=== PATIENT | male | born 1930 | race Caucasian/White ===

== ENCOUNTER 2018-11-02 17:56 | Emergency (ER) | payer MEDICARE, OTHER ==
[~2018-11-02] VITALS: Ht 180.3 cm; Wt 80.7 kg
--- OUTSIDE RECORDS SUMMARY | ~2018-11-02 | XMS | Clinical Summary ---
Demographics + + + | Address | [address] | | | [place] [address] | + + + | Home Phone | | + + + | Preferred Language | Unknown | + + + | Marital Status | | + + + | Taoist Affiliation | Unknown | + + + | Race | Unknown | + + + | Ethnic Group | Unknown | + + + Author + + + | Author | [facility] | + + + | Organization | [facility] | + + + | Address | Unknown | + + + | Phone | Unavailable | + + + Support + + +---------+ + | Name | Relationship | Address | Phone | + + +---------+ + | Suzanna Hirsch | ECON | Unknown | | + + +---------+ + Care Team Providers + +------+ + | Care Supervisor Lending Activities Name | Role | Phone | + +------+ + | Nate Blackwell MD | PP | | + +------+ + Allergies + + + + + + | Active Allergy | Reactions | Severity | Noted | Comments | | | | | Date | | + + + + + + | Penicillins | Hives | High | 01/10/20 | | | | | | 14 | | + + + + + + Current Medications + + +--------+---------+------+------+-------+ | Prescription | Sig. | Disp. | Refills | Star | End | Statu | | | | | | t | Date | s | | | | | | Date | | | + + +--------+---------+------+------+-------+ | aspirin 81 MG EC | Take 81 mg by mouth | | | | | Activ | | tablet | daily. | | | | | e | + + +--------+---------+------+------+-------+ | | Take 1 tablet by | | | | | Activ | | [id number]-[id number] | mouth daily. | | | | | e | | NC PO | | | | | | | + + +--------+---------+------+------+-------+ | Folic Acid-Vit | Take 1 tablet by | | | | | Activ | | B6-Vit B12 (FOLBEE | mouth daily. | | | | | e | | PO) | | | | | | | + + +--------+---------+------+------+-------+ | niacin (NIASPAN) | Take 500 mg by mouth | | | | | Activ | | 500 MG CR tablet | nightly. | | | | | e | + + +--------+---------+------+------+-------+ | pravastatin | Take 80 mg by mouth | | | | | Activ | | (PRAVACHOL) 80 MG | nightly. | | | | | e | | tablet | | | | | | | + + +--------+---------+------+------+-------+ | | Take 1 capsule by | | | | | Activ | | glucosamine-chondroi | mouth 2 (two) times | | | | | e | | tin 500-400 MG CAPS | daily. | | | | | | + + +--------+---------+------+------+-------+ | omeprazole | Take 20 mg by mouth | | | | | Activ | | (PRILOSEC) 20 MG | every morning before | | | | | e | | capsule | breakfast. | | | | | | + + +--------+---------+------+------+-------+ | | Take 1 tablet by | | | | | Activ | | DH-Ssgnrldeir-Xbxpmy | mouth daily. | | | | | e | | obalamin | | | | | | | | (SZ-KIHWIIQCST-PTRIU | | | | | | | | COBALMIN, FOLTX, | | | | | | | | TABLET) 2.5-25-2 MG | | | | | | | | TABS | | | | | | | + + +--------+---------+------+------+-------+ | Cholecalciferol | Take 2,000 Units by | | | | | Activ | | 2000 UNITS CAPS | mouth daily. | | | | | e | + + +--------+---------+------+------+-------+ | metoprolol | Take 0.5 tablets by | 45 | 3 | 06/0 | | Activ | | (TOPROL-XL) 25 MG 24 | mouth daily. | tablet | | 04/27 | | e | | hr tablet | | | | 17 | | | + + +--------+---------+------+------+-------+ | Calcium | Take 1 tablet by | | | | | Activ | | Citrate-Vitamin D | mouth daily. | | | | | e | | (CALCIUM CITRATE + | | | | | | | | D3 PO) | | | | | | | + + +--------+---------+------+------+-------+ Active Problems + + + | Problem | Noted Date | + + + | Right bundle branch block | 01/23/2015 | + + + + + | Last Assessment & Plan: New RBBB is now notedHe is | | asymptomaticHe stays [id number] echo normal LV functionReg EST | | negative for ischemia- hypertensive response to exercise notedBP | | now well controlledDiscussed about BP response to exercise, | | discussed diet, exercise, lifestyle changesExercise | | trainingContinue Metoprolol, ASA, PravastatinF/u annually or as | | needed. | |Exercise training | |Continue Metoprolol, ASA, Pravastatin | |F/u annually or as needed. | + + + + + | HTN (hypertension) | 01/09/2014 | + + + + + | Last Assessment & Plan: Hypertension. 85yo WM, | | continues to be fairly active, denies any chest discomfort, | | shortness breath, palpitations, or lightheadedness. He does | | monitor his blood pressure home, and he admits it has been | | running in the 140 | | | | 160 systolic range. His prior workup is reviewed. Labs | | reviewed. Since last seen, one year ago, no surgical procedures | | or hospitalizations. Tolerating medications. He'll continue his | | metoprolol succinate, today we had him resume her losartan at 25 | | mg daily, he'll continue to monitor his blood pressure.Last | | Cath: naLast Echo, 02/11/2015: LVEF 60-65%, mild LAE, trace AI, | | trace MR, trace TR, trace PI, est systolic PAP 26-31mmHg.Last | | Stress Test, 02/11/2015: 3:41min Franklyn, no chest pain, ECG (-) for | | ischemia, no arrhythmias.ECG, 01/23/2015: sinus rhythm, 59bpm, 1st | | degree AVB, RBBB. | + + + + + | Hyperlipidemia | 01/09/2014 | + + + + + | Overview: Last Assessment & Plan: Hyperlipidemia, at | | goal, continue current meds at current dose (pravastatin). Labs | | reviewed with patient.Labs, 11/03/2015: T Chol: 144, LDL-Chol: 80, | | HDL-Chol: 45, Tri Liver enzymes | | NML, K: 4.3, BUN/Cr: 14/1.0 (GFR 68), glu: 102 | | TSH: 1.20, HgbA1c: 6.0, WBC: 7.5, H/H: 10.6/32.7, plt: | | 312, ESR: 24, CRP: 1.0 | + + + + + | PUD (peptic ulcer disease) | 01/09/2014 | + + + + + | Overview: History of | + + Resolved Problems + + + + | Problem | Noted | Resolved | | | Date | Date | + + + + | Metabolic syndrome | 01/10/20 | | | | 14 | 7 | + + + + + + | Overview: History of | + + + +---+ + | Cardiomyopathy (HCC) | | | | | | 7 | + +---+ + + + | Last Assessment & Plan: CM, cause not entirely clear. 83yo | | WM, apparently having pneumonia this winter, slowly recovering, | | he continues to be short of breath, now quite anemic. Since last | | seen, one year ago, no surgical procedures. We discussed the | | pravastatin, and his age, and in the absence of documented | | coronary disease or stroke, he may not really benefit from this, | | however this time he does not make any changes in his medical | | therapy. His blood pressures also high, again does not want to | | make any changes in his therapy. I've asked him to monitor his | | blood pressure and follow up with his PCP.Hx CABG: noHx | | PCI/stent: Marybethacemaker/ICD: noLast cath: naLast Echo, 10/01/2011: | | LV enlargement (LVEDd 61mm), LVEF 60-65%, mild bi-Atrial | | enlargement, mild MR, mild TR.Last stress test, 09/08/2010: 6:09min | | Franklyn, no chest pain, ECG (-) for ischemia, occ PAC's. | + + Family History + + +------+ + | Medical History | Relation | Name | Comments | + + +------+ + | Heart disease | Father | | | + + +------+ + | Cancer | Mother | | | + + +------+ + + +------+ + + | Relation | Name | Status | Comments | + +------+ + + | Father | | | heart disease | | | | (Age | | | | | 86) | | + +------+ + + | Mother | | | pancreatic cancer | | | | (Age | | | | | 89) | | + +------+ + + Social History + + + +--------+------+ | Tobacco Use | Types | Packs/Day | Years | Date | | | | | Used | | + + + +--------+------+ | Former Smoker | Cigarettes | | 20 | | + + + +--------+------+ + +---+---+---+ | Smokeless Tobacco: | | | | | Never Used | | | | + +---+---+---+ + + +---------+ + | Alcohol Use | Drinks/We | oz/Week | Comments | | | ek | | | + + +---------+ + | Yes | 1 | 0.6 | maybe one beer a week | | | Standard | | | | | drinks or | | | | | | | | | | equivalen | | | | | t | | | + + +---------+ + + + + | Sex Assigned at | Date Recorded | | | | + + + | Not on file | | + + + Last Filed Vital Signs + + + + | Vital Sign | Reading | Time Taken | + + + + | Blood Pressure | 136/52 | 04/19/2018 1:38 PM PDT | + + + + | Pulse | 65 | 04/19/2018 1:38 PM PDT | + + + + | Temperature | - | - | + + + + | Respiratory Rate | 16 | 04/22/2016 12:05 PM PDT | + + + + | Oxygen Saturation | 98% | 04/19/2018 1:38 PM PDT | + + + + | Inhaled Oxygen | - | - | | Concentration | | | + + + + | Weight | 85 kg (187 lb 4.8 | 04/19/2018 1:38 PM PDT | | | oz) | | + + + + | Height | 180.3 cm (5' 11") | 04/19/2018 1:38 PM PDT | + + + + | Body Mass Index | 26.12 | 04/19/2018 1:38 PM PDT | + + + + Plan of Treatment +--------+---------+ + + + | Date | Type | Specialty | Care Team | Description | +--------+---------+ + + + | 05/02/ | Office | | Yanira Schmidt, | | | 2019 | Visit | | MD Chon Navarro | | | | | | Dr [address]ins, | | | | | | [place] [address] | | | | | | [phone] | | | | | | | | +--------+---------+ + + + + + + + + | Health Maintenance | Due Date | Last Done | Comments | + + + + + | Vaccine: | | | | | Dtap/Tdap/Td (1 - | 0 | | | | Tdap) | | | | + + + + + | Vaccine: Zoster (1 | | | | | of 2) | 1 | | | + + + + + | Vaccine: | | | | | Pneumococcal 65+ | 6 | | | | Low/Medium Risk (1 | | | | | of 2 - PCV13) | | | | + + + + + | Vaccine: Influenza | | | | | (#1) | 8 | | | + + + + + Results Not on filefrom Last 3 Months Insurance + +--------+ +------+-------+ + | Payer | Benefi | Subscriber | Type | Phone | Address | | | t Plan | ID | | | | | | / | | | | | | | Group | | | | | + +--------+ +------+-------+ + | MEDICARE | MEDICA | [id number] | | | [address] | | | RE | | | | [place] [address] | | | IP-OP | | | | | + +--------+ +------+-------+ + | [employer] | ODS | [id number] | | | | | | HEALTH | | | | | | | PLAN | | | | | + +--------+ +------+-------+ + + +--------+ +--------+ + + | Guarantor Name | Accoun | Relation to | Date | Phone | Billing Address | | | t Type | Patient | of | | | | | | | | | | + +--------+ +--------+ + + | TIANA HIRSCH | Person | Self [birth year] Home: | 1909 | | | al/Fam | | 1931 | [phone] [place] | | | [place] | | | [phone] | [phone] | + +--------+ +--------+ + +
--- OUTSIDE RECORDS SUMMARY | ~2018-11-02 | XMS | Clinical Summary ---
Demographics + + + | Address | [address] | | | [place] [address] | + + + | Home Phone | | + + + | Preferred Language | Unknown | + + + | Marital Status | | + + + | Yarsanism Affiliation | Unknown | + + + | Race | Unknown | + + + | Ethnic Group | Unknown | + + + Author + + + | Author | [facility] | + + + | Organization | [facility] | + + + | Address | Unknown | + + + | Phone | Unavailable | + + + Support + + +---------+ + | Name | Relationship | Address | Phone | + + +---------+ + | Suzanna Hirsch | ECON | Unknown | | + + +---------+ + Care Team Providers + +------+ + | Care Fabric Awning Repairer Name | Role | Phone | + [...] | | | | Activ | | MKFCHRW-SOIESTRPT-QM | mouth daily. | | | | [...] | | | | Activ | | ER-Evqskxrxsv-Xgvpcx | mouth daily. | | | | | e | | obalamin | | | | | | | | (NT-XMEDQGQQCY-UBBTW | | | | | | | [...] now notedHe is | | asymptomaticHe stays [id number] echo normal LV functionReg EST | | [...] | | | | | | [place] [address] | | | | | | [phone] | | | | | | | [...] +------+-------+ + | MEDICARE | MEDICA | [id number] | | | [address] | | | RE | | | | [place] [address] | | | IP-OP | | | | | + +--------+ +------+-------+ + | [employer] | ODS | [id number] | | | | | | HEALTH [...] | [place] | | | [phone] | [phone] | + +--------+ +--------+ + +
[~2018-11-02 17:56] MED LIST: ASPIRIN EC81 MG PO; CALCIUM 600 MG1 EACH PO; FOLBIC TABLET1 EACH PO; METOPROLOL SUCC25 MG PO; NIACIN500 M1 PO; PRAVACHOL80 MG PO; VITAMIN B12-FO1 EACH PO
== END 2018-11-02 19:10 | disposition home or self-care (01) ==
LOC: ED 17:56
DX: S01.81XA Laceration without foreign body of other part of head, initial encounter (principal); I10 Essential (primary) hypertension; Z87.891 Personal history of nicotine dependence; Z88.0 Allergy status to penicillin; Z79.899 Other long term (current) drug therapy; Z79.82 Long term (current) use of aspirin; W01.10XA Fall on same level from slipping, tripping and stumbling with subsequent striking against unspecified object, initial encounter; Z23 Encounter for immunization
CPT/HCPCS: 90471; 90715; 99282

== ENCOUNTER 2019-08-13 17:00 | Emergency (ER) | payer MEDICARE, OTHER ==
[~2019-08-13] VITALS: Ht 180.3 cm; Wt 80.7 kg
--- OUTSIDE RECORDS SUMMARY | ~2019-08-13 | XMS | Encounter Summary ---
Demographics + + + | Address | [address] | | | [place] [address] | + + + | Home Phone | | + + + | Preferred Language | Unknown | + + + | Marital Status | | + + + | Congregation Affiliation | Unknown | + + + | Race | Unknown | + + + | Ethnic Group | Unknown | + + + Author + + + | Author | [facility] | | | and [place] | + + + | Organization | [facility] | | | and [place] [...] Team Providers + +------+ + | Care Producer Arborist Manager Name | Role | Phone | + +------+ + | Nate Blackwell | PCP | | | MD | | | + +------+ + Encounter Details +--------+ + + + + | Date | Type | Department | Care Team | Description | +--------+ + + + + | 01/09/ | Orders Only | [facility] | Conversion | | | 2013 | | CONVERSION [address] | Transaction, | | | | | [address] | Provider Unknown | | | | | [place] | [phone] | | | | | [address] | | | | | | [phone] | | | +--------+ + + + [...] THAYER | | | | | | [place], [place] | | | | | | [address] | | | | | | | | +--------+---------+ + + + documented as of this encounter Visit Diagnoses Not on filedocumented in this encounter"
--- OUTSIDE RECORDS SUMMARY | ~2019-08-13 | XMS | Encounter Summary ---
Demographics + + + | Address | [address] | | | [place] [address] | + + + | Home Phone | | + + + | Preferred Language | Unknown | + + + | Marital Status | | + + + | Jew Affiliation | Unknown | + + + | Race | Unknown | + + + | Ethnic Group | Unknown | + + + Author + + + | Author | [facility] | | | and [place] | + + + | Organization | [facility] | [...] Team Providers + +------+ + | Care Stem Roller Or Crusher Operator Name | Role | Phone | + +------+ + | Nate Blackwell | PCP | | | MD | | | + +------+ + Encounter Details +--------+ + + + + | Date | Type | Department | Care Team | Description | +--------+ + + + + | 02/11/ | Orders Only | [facility] | Saul Hernandez | | | 2015 | | CARDIOLOGY JAIME Vaughan MD [address] | | | | | [address] | [address] | | | | | [address] | [place] [address] | | | | | [place], [place] | [phone] | | | | | [address] | | | | | | [phone] | | | +--------+ + + + [...] [place] | | | | | | [address] | | | | | | | [...] Performed At | + + + | [facility] CARDIOLOGY Treadmill Stress Test TEST DATE: | [...] | BP: 211 / 59 . RPP: 61720. METS: 6.20. Symptoms: bilateral leg | | [...] Vin Ortiz Conversion - 03/30/2019 9:[address] [facility] CARDIOLOGYTreadmill | | Stress Test [...] Max BP: 211 / 59 . RPP: 39239. | | METS: 6.20. Symptoms: bilateral leg fatigue The test was terminated due to patient | | bilateral leg fatigue, walked to 93 % MPHR. Stress EKG shows no significant ST T | | changes, no arrhythmias noted. IMPRESSIONS:Negative treadmill exercise stress | | test.Hypertensive response to exercise noted. Saul Hernandez MD Electronically | | signed by Sual Hernandez MD on 02/13/2015 7:14 PM | [...]
--- OUTSIDE RECORDS SUMMARY | ~2019-08-13 | XMS | Encounter Summary ---
Demographics + + + | Address | [address] | | | [place] [address] | + + + | Home Phone | | + + + | Preferred Language | Unknown | + + + | Marital Status | | + + + | Yazidi Affiliation | Unknown | + + + | Race | Unknown | + + + | Ethnic Group | Unknown | + + + Author + + + | Author | [facility] | | | and [place] | + + + | Organization | [facility] | | | and [place] [...] Team Providers + +------+ + | Care Fur Dry Cleaner Name | Role | Phone | + +------+ + | Nate Blackwell | PCP | | | MD | | | + +------+ + Encounter Details +--------+ + + + + | Date | Type | Department | Care Team | Description | +--------+ + + + + | 04/22/ | Orders Only | [facility] | Conversion | | | 2016 | | CONVERSION [address]P [address] | Transaction, | | | | | [address] | Provider Unknown | | | | | [place] | [phone] | | | | | [phone] | | | | | | [phone] | | | +--------+ + + + [...] | | | | | [place], [place] | | | | | | [address] | | | | | | | | +--------+---------+ + + + documented as of this encounter Visit Diagnoses Not on filedocumented in this encounter"
--- OUTSIDE RECORDS SUMMARY | ~2019-08-13 | XMS | Encounter Summary ---
Demographics + + + | Address | [address] | | | [place] [address] | + + + | Home Phone | | + + + | Preferred Language | Unknown | + + + | Marital Status | | + + + | Congregational Affiliation | Unknown | + + + | Race | Unknown | + + + | Ethnic Group | Unknown | + + + Author + + + | Author | [facility] | | | and Garyana | + + + | Organization | [facility] | | | and Garyana [...] Team Providers + +------+ + | Care Automatic Buffing Wheel Former Name | Role | Phone | + +------+ + | Nate Blackwell | PCP | | | MD | | | + +------+ + Reason for Visit + + + | Reason | Comments | + + + | Follow-up, Office | Annual | | Visit | | + + + Encounter Details +--------+---------+ + + + | Date | Type | Department | Care Team | Description | +--------+---------+ + + + | 06/11/ | Office | [facility] | Trina Verdugo | Right bundle branch | | 2019 | Visit | CARDIOLOGY [place] | [address] | block (Primary Dx); | | | | [address] | [address] | Essential | | | | [address] | [place] [address] | hypertension; Mixed | | | | [place], [place] | [phone] | hyperlipidemia; | | | | [address] | | Murmur, cardiac | | | | [phone] | | | +--------+---------+ + + + Social History + +-------+ +--------+ + | Tobacco Use | Types | Packs/Day | Years | Date | | | | | Used | | + +-------+ +--------+ + | Former Smoker | | 1 | 6 | 1946 - 06/11/1953 | + +-------+ +--------+ + + +---+---+--------+ | Smokeless Tobacco: | | | Quit: | | Former User | | | 1980 | + +---+---+--------+ + + | Comments: smoked a pipe as well , now quit | + + + + +---------+ + | Alcohol Use | Drinks/Week | oz/Week | Comments | + + +---------+ + | Yes | 1 Cans of beer | 1.0 | Alcoholic | | | | | Drinks/day: maybe | | | | | one beer a week | + + +---------+ + + + [...] + + documented as of this encounter Last Filed Vital Signs + + + + + | Vital Sign | Reading | Time Taken | Comments | + + + + + | Blood Pressure | 130/64 | 06/11/2019 10:13 AM | | | | | PST | | + + + + + | Pulse | 63 | 06/11/2019 10:13 AM | | | | | PST | | + + + + + | Temperature | - | - | | + + + + + | Respiratory Rate | - | - | | + + + + + | Oxygen Saturation | 96% | 06/11/2019 10:13 AM | | | | | PST | | + + + + + | Inhaled Oxygen | - | - | | | Concentration | | | | + + + + + | Weight | 79.7 kg (175 lb 11.2 | 06/11/2019 10:13 AM | | | | oz) | PST | | + + + + + | Height | 180.3 cm (5' 11") | 06/11/2019 10:13 AM | | | | | PST | | + + + + + | Body Mass Index | 24.51 | 06/11/2019 10:13 AM | | | | | PST | | + + + + + documented in this encounter Patient Instructions Patient Instructions Kartik Swati, FNP - 06/11/2019 10:30 AM PSTI have ordered you fasting labs to be done at [facility], and can be combined with any labs ordered by Dr. Villalobos man Your have a small murmur, and we can do an Echo in future if you wish to follow up as we di scussed today I made changes to medications : take metoprolol and pravastatin at bedtime at 9 pm, and castillo k to Dr. Blackwell, about Omeprazole, if think it is making your dizziness, And take aspirin with food, and with breakfast Stop Niacin, as can irritate your stomach and interferes with pravastatin See Dr. Irving In the spring as scheduled . documented in this encounter Progress Notes Trina Verdugo FNP - 06/11/2019 10:30 AM PSTFormatting of this note might be differe nt from the original. Date of visit: 06/11/2019 Primary Care Physician: Nate Blackwell MD CHIEF COMPLAINT: Chief Complaint Patient presents with Follow-up, Office Visit Annual HISTORY OF PRESENT ILLNESS: Mr. Tiana Hirsch , [place], is an 88-year old man who is here today as overdue for [facility] exam He is a patient of , who is his primary decorator lighting fixtures , and last seen by mihai mercer 04/19/2018. He was previously seen by decorator lighting fixtures , now retired. . Today, I reviewed all previous documentation available to me in electronic medical gordon rds and from external sources. He has a history of right bundle branch block, and previous EKG showed bifascicular block, Hypertension, hyperlipidemia, PUD,and chronic anemia with blood transfusions 1969's His current and previous testing and procedures are detailed below . 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 He denies any chest pain, palpitations, dyspnea, dizziness,or syncope. He also denies any s igns or symptoms of stroke or TIA, or any illness, surgery, or hospitalization since last se en. He quit smoking in 1952, and smoked about a pack a day for 6 years, and also smoked a pipe for some time, but has also quit that sometime in the 1949's. He drinks 4-5 servings of caf feine daily, predominantly weak tea and rare alcohol use, and denies use of recreational o r illicit drugs. He is and lives with his , who has some significant health issues, and also has an adult daughter who is on medical disability living with them. He continues to do some work with [employer], predominantly [employer], initiall y retired from full-time work with them 25 years ago. He brought his medications to the clinic today, and personally reviewed by me, but rep orts ongoing dizziness with omeprazole, so he only takes it sporadically. He also seems to have irregular medication dosing habits, as he will often wake up in the middle of the night and take medications at that time, so not on a regular schedule REVIEW OF SYSTEMS: Negative except for pertinent items noted in HPI. Constitutional: Denies fatigue or unexplained weight loss. Appetite is good. Weight is st able. Denies night sweats fevers or chills HENT: Reports occasional nosebleeds. Denies hearing problems. Denies dysphagia Eyes: Denies visual disturbance or double vision. Respiratory/Sleep:: Dyspnea with more extreme exertion. Denies cough and shortness of prema th with ordinary activities . Denies hemoptysis or excessive sputum production. Denies snor ing, orthopnea, PND. Cardiovascular: Denies chest pain, palpitations and leg swelling. Denies history of rheuma tic fever. Denies claudication . Gastrointestinal:Hx PUD, not since a ? GERD . Denies nausea, vomiting, abdominal nikki n and blood in stool. Genitourinary: Denies hematuria. Musculoskeletal: Denies myalgias, back pain and arthralgias. Skin: Denies color change. Denies rash or lesions Neurological:Dizziness with omeprazole Denies history of stroke/Transient ischemic attack. Denies history of seizures. Denies dizziness, syncope and numbness. Hematological/Oncology . Hx blood transfusion 1970's. Bruises easily. Denies bleeding Den ies history of cancer Endocrine: Denies diabetes or thyroid disease. Denies excessive thirst or hunger. Psychiatric/Behavioral: denies any history of depression or anxiety or other psychiatric il lness. Vaccines: Not Current on flu vaccine. Current on pneumonia vaccine?. Habits/Social : history of smoking., quit 1952, 1 ppd x 6 years . Also smoked a pipe for s everal years, but not since 1949's . EtOH use, 1 beer per week . Drinks 4-5 servings of caf feine daily. Denies recreational or illicit drug use. Exercises with active farm work , and tolerates. Lives in [place] . 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 . has significant health problems, and lives w ith adult daughter with medical disability. Outpatient Medications Prior to Visit Medication Sig Dispense Refill aspirin 81 MG EC tablet Take 81 mg by mouth daily. Calcium Citrate-Vitamin D (CALCIUM CITRATE + D3 PO) Take 1 tablet by mouth daily. SXRHJCB-NTFKCMPBC-DHAU PO Take 1 tablet by mouth daily. Cholecalciferol (VITAMIN D-3) 2000 units CAPS Take 2,000 Units by mouth daily. folic yqde-emvavdzqow-oxmnafqxharucp (FOLBIC) 2.5-25-2 MG TABS Take 1 tablet by mouth d aily. Folic Acid-Vit B6-Vit B12 (FOLBEE PO) Take 1 tablet by mouth daily. glucosamine-chondroitin 500-400 MG capsule Take 1 capsule by mouth 2 (two) times daily. metoprolol succinate (TOPROL-XL) 25 mg 24 hr tablet Take 0.5 tablets by mouth daily. (P atient taking differently: Take 12.5 mg by mouth nightly.) 45 tablet 3 niacin (NIASPAN) 500 mg CR tablet Take 500 mg by mouth nightly. omeprazole (PRILOSEC) 20 mg capsule Take 20 mg by mouth every morning before breakfast. (Patient taking differently: Take 20 mg by mouth as needed.) pravastatin (PRAVACHOL) 80 MG tablet Take 80 mg by mouth nightly. No facility-administered medications prior to visit. PHYSICAL EXAM: Wt Readings from Last 3 Encounters: 06/11/19 79.7 kg (175 lb 11.2 oz) Temp Readings from Last 3 Encounters: No data found for Temp BP Readings from Last 3 Encounters: 06/11/19 130/64 Pulse Readings from Last 3 Encounters: 06/11/19 63 Signs: 04/19/2018: WT 187 LB. BP 136/52. HR 65. GENERAL: Well developed, well nourished, in no distress. Appears approximately stated age . HEENT: Normocephalic, atraumatic. EYES: PERRL, EOM normal. MOUTH: Oral mucosae moist, dentition adequate, no lesions noted NECK: No JVD, lymphadenopathy, thyromegaly, bruits. Carotid pulses are 2+ bilaterally LUNGS/CHEST: Clear bilaterally, with no rales, rhonchi or wheezing noted, respirations unl abored HEART: Nondisplaced PMI, regular rate and rhythm, S1, S2 normal. 2/6 murmur RUSB,no rubs or gallops noted. ABDOMEN: Soft, nontender, no organomegaly, masses or bruits. Bowel sounds are normal in a ll 4 quadrants. The abdominal aortic pulsation is not palpable. EXTREMITIES: Trace pedal edema. Radial pulses 2+ bilaterally. Femoral pulses are 2+ bila terally without bruits. DP and PT pulses are 2+ bilaterally. No clubbing.minor varicositie s to ankles SKIN: Warm and dry, capillary refill is normal, no lesions. NEUROLOGIC: Awake, alert and oriented x 3. No focal motor or sensory deficits. PSYCHIATRIC: Appropriate, affect appears normal DATA: Blood tests: No results found for: WBC, RBC, HGB, HCT, PLT No results found for: NA, K, CL, CO2, ANIONGAP, GLUF, BUN, CREATININE, BCR, EGFR No results found for: CHOL, TRIG, LDL, LDL, GLUF No results found for: BNP, TSH, CRP No results found for: TOTEPI CARDIAC PROCEDURES/IMAGING Last stress test : 02/11/2015 PROCEDURE:: Franklyn protocol. The predicted exercise time was 7 m inutes.Patient's Predicted Maximum HR: 136 bpm. Patient's Predicted 85% Max HR: 116 bpm REST DATA: R: 68 bmp BP: 146 / 67 Rest EKG shows NSR RBBB. STRESS DATA: Exercise Time: 03:41 minutes, HR achieved: 127 bpm , Max BP: 211 / 59 . RPP: 2 4563. METS: 6.20. Symptoms: bilateral leg fatigue The test was terminated due to patient jocy ateral leg fatigue, walked to 93 % MPHR. Stress EKG shows no significant ST T changes, no ar rhythmias noted. IMPRESSIONS:Negative treadmill exercise stress test. Hypertensive response to exercise no rafael. VASCULAR TESTING AND PROCEDURES-none ECHO Last Echo 02/11/2015: LVEF 60-65%, mild LAE, trace AI, trace MR, trace TR, trace PI, est syst olic PAP 26-31mmHg. EKG/EVENT MONITOR EK04/19/2018: Sinus rhythm with first-degree AV block, right bundle branch block LAFB. R ate 68 bpm, CA 216 ms, QRS 146 ms, QTC 452 ms tracing personally reviewed by me. EK06/11/2019: Sinus rhythm with first-degree AV block, right bundle branch block. Rate 6 1 bpm, CA 226 ms, QRS 144 ms, QTC 430 ms, tracing personally reviewed by me, and ongoing low voltage QRS leads II, III, aVF, aVL resolution of left anterior fascicular block since prev ious EKG LABS Labs: 11/03/2015: Lipids:( Pravachol 80 mg ) Cholesterol 144, triglycerides 93, HDL 45.1, L DL 80. CMP: Sodium 133, potassium 4.3, chloride 99, glucose 102, BUN 14, creatinine 1.04, G FR 68, AST 16, ALT 12, alk phos 99, total bili 0.3, albumin 4.2. A1c 6 ( 126). Thyroid TS H 1.28 CRP 1 CBC: WBC 7.5, RBC 3.71, hemoglobin 10.6, hematocrit 32.7, platelets 312 ESR 24 ASSESSMENT & PLAN: He was here today as overdue for annual exam. He has problems as detailed below. His EKG performed in the clinic today shows stable sinus rhythm with first-degree AV block and right bundle branch block at 61 bpm, and heart rate and blood pressure well controlled on current medications. The main changes I noted to his physical exam today were that he has a soft murmur to hi s right upper sternal border, with a previous history of trace AI, and trace pedal edema, a nd reports dyspnea only with more extreme exertion. I have suggested that we could perform an echo for further evaluation, but he is not judith lly interested in this today as he feels overall he is quite stable. I reviewed his medications with him, and he has a concern that he is dizzy with his omepr azole, which I have told him to discuss with his PCP, Dr. Blackwell. I also made suggestions that he take his medications at regular times on a daily basis, as he apparently wakes up in the night and will take some of his medications in the middle of the night, and other times at other times of the day, and this may be contributing to diz ziness with omeprazole. I made no changes to cardiac medications today, and he should continue ASA 81 mg whic h I have suggested he take with breakfast in the morning to avoid GI irritation , and not in the middle of the night, metoprolol XL 12.5 mg qhs for heart rate control and hypertension, pravastatin 80 mg qhs for hyperlipidemia, and have advised him to stop Niacin As interfere s with efficacy of Pravachol, and can increased GI irritation. I have suggested he take Pravachol and metoprolol at bedtime, and same time everyday. I have ordered an updated CMP and Lipid panel , and advised him to combine it with any blo od work ordered by his PCP , Dr. Blackwell , whom he will be seeing soon. He will follow up with Dr. Irving in November for primary cardiology visit. He is aware h e can see me sooner if needed. 1. Right bundle branch block 2. Essential hypertension 3. Mixed hyperlipidemia 4. Murmur, cardiac Orders Placed This Encounter Procedures Comprehensive Metabolic Panel Lipid Panel ECG 12 lead The following portions of the patient's history were personally reviewed by me and updated as appropriate: EKG tracings, other specialty provider and PCP notes,any Hospital admission and discharge summaries, any ER records , current and previous cardiac testing and procedure reports and d noah, medication bottles brought to visit today personally reviewed by me. Allergies, current medications.labs Family history, past medical history, past social history, past surgical history. Problem list. This encounter was dictated with voice recognition software and may contain inadvertent rec ognition errors. Rashad PALOMARES [facility] 06/11/2019 Tran montenegro in this encounter Plan of Treatment +--------+---------+ + + + | Date | Type | Specialty | Care Team | Description | +--------+---------+ + + + | 11/06/ | Office | Cardiology | Yanira Irving, | | | 2019 | Visit | | MD Chon THAYER | | | | | | [place] | | | | | | [id number] | | | | | | | | +--------+---------+ + + + + +------+--------+ + + | Name | Type | Priori | Associated Diagnoses | Order Schedule | | | | ty | | | + +------+--------+ + + | Comprehensive | Lab | Routin | Mixed | Expected: | | Metabolic Panel | | e | hyperlipidemia | 06/11/2019, Expires: | | | | | | 06/11/2020 | + +------+--------+ + + | Lipid Panel | Lab | Routin | Mixed | Expected: | | | | e | hyperlipidemia | 06/11/2019, Expires: | | | | | | 06/11/2020 | + +------+--------+ + + documented as of this encounter Procedures + +--------+ + + + | Procedure Name | Priori | Date/Time | Associated Diagnosis | Comments | | | ty | | | | + +--------+ + + + | ECG 12 LEAD | Routin | 06/11/2019 | Right bundle | Results for this | | | e | 10:27 AM | branch block | procedure are in the | | | | PST | Essential | results section. | | | | | hypertension Mixed | | | | | | hyperlipidemia | | + +--------+ + + + documented in this encounter Results ECG 12 lead (06/11/2019 10:27 AM PST) + + + + + + | Component | Value | Ref Range | Performed | Pathologist | | | | | At | Signature | + + + + + + | VENTRICULAR | 61 | BPM | [facility] | | | RATE EKG | | | | | + + + + + + | ATRIAL RATE | 61 | BPM | [facility] | | + + + + + + | P-R | 226 | ms | [facility] | | | INTERVAL | | | | | + + + + + + | QRS | 144 | ms | [facility] | | | DURATION | | | | | + + + + + + | Q-T | 428 | ms | [facility] | | | INTERVAL | | | | | + + + + + + | Q-T | 430 | ms | [facility] | | | INTERVAL | | | | | | (CORRECTED) | | | | | + + + + + + | P WAVE AXIS | 43 | degrees | [facility] | | + + + + + + | QRS AXIS | -15 | degrees | [facility] | | + + + + + + | T AXIS | 30 | degrees | [facility] | | + + + + + + | INTERPRETAT | Please refer to | | [facility] | | | ION TEXT | Providers office visit | | | | | | note for Providers | | | | | | Interpretation.Confirmed | | | | | | by [facility] [place], | | | | | | [facility] Melanie ([id number]), | | | | | | television news video editor Dima Clements | | | | | | ([id number]) on 06/11/2019 | | | | | | 11:47:51 AM | | | | + + + + + + + + | Specimen | + + | | + + + + + | Narrative | Performed At | + + + | | | + + + + +---------+ + + | Performing | Address | City/State/Zipcode | Phone Number | | Organization | | | | + +---------+ + + | [facility] | | | | + +---------+ + + documented in this encounter Visit Diagnoses + + | Diagnosis | + + | Right bundle branch block - Primary | + + | Essential hypertension Unspecified essential hypertension | + + | Mixed hyperlipidemia | + + | Murmur, cardiac Undiagnosed cardiac murmurs | + + documented in this encounter
--- OUTSIDE RECORDS SUMMARY | ~2019-08-13 | XMS | Encounter Summary ---
Demographics + + + | Address | [address] | | | [place] [address] | + + + | Home Phone | | + + + | Preferred Language | Unknown | + + + | Marital Status | | + + + | Orthodoxy Affiliation | Unknown | + + + | Race | Unknown | + + + | Ethnic Group | Unknown | + + + Author + + + | Author | [facility] | | | and Garyana | + + + | Organization | [facility] | | | and Garyana [...] Team Providers + +------+ + | Care Gate Tender Name | Role | Phone | + +------+ + | Ntae Blackwell | PCP | | | MD [...] + + | 06/11/ | Office | [facility] | Trina Verdugo | Right bundle branch | | 2019 | Visit | CARDIOLOGY [place] | [address] | block (Primary Dx); | | | | [address] | [address] | Essential | | | | [address] | [place] [address] | hypertension; Mixed | | | | [place], [place] | [phone] | hyperlipidemia; | | | | [address] | | Murmur, cardiac | | | | [phone] | | | +--------+---------+ + + + [...] you fasting labs to be done at [facility], and can be combined with any [...] is here today as overdue for [facility] exam He is a patient of , who is his primary public services assistant , and last seen by mihai mercer 04/19/2018. He was previously seen by public services assistant , now retired. . Today, I reviewed [...] He continues to do some work with [employer], predominantly [employer], initiall y retired from full-time work with [...] farm work , and tolerates. Lives in [place] . 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 . has significant health problems, and lives w ith adult daughter with medical disability. Outpatient Medications Prior to Visit Medication Sig Dispense Refill aspirin 81 MG EC tablet Take 81 mg by mouth daily. Calcium Citrate-Vitamin D (CALCIUM CITRATE + D3 PO) Take 1 tablet by mouth daily. ACWAPFC-ZFGGNLZWG-WGTP PO Take 1 tablet by mouth daily. Cholecalciferol (VITAMIN D-3) 2000 units CAPS Take 2,000 Units by mouth daily. folic qemx-uyfhvzmyku-ztxtosxfqwxoic (FOLBIC) 2.5-25-2 MG TABS Take 1 tablet [...] branch block LAFB. R ate 68 bpm, DE 216 ms, QRS 146 ms, QTC 452 ms tracing personally reviewed by me. EK06/11/2019: Sinus rhythm with first-degree AV block, right bundle branch block. Rate 6 1 bpm, DE 226 ms, QRS 144 ms, QTC 430 [...] contain inadvertent rec ognition errors. Rashad PALOMARES [facility] 06/11/2019 Tran montenegro in this [...] [place] | | | | | | [id number] | | | | | | | [...] | | | | | by [facility], | | | | | | [facility] Melanie ([id number]), | | | | | | electronic news gathering editor Dima Clements | | | | [...]
--- OUTSIDE RECORDS SUMMARY | ~2019-08-13 | XMS | Encounter Summary ---
Demographics + + + | Address | [address] | | | [place] [address] | + + + | Home Phone | | + + + | Preferred Language | Unknown | + + + | Marital Status | | + + + | Confucianism Affiliation | Unknown | + + + | Race | Unknown | + + + | Ethnic Group | Unknown | + + + Author + + + | Author | [facility] | | | and Garyana | + + + | Organization | [facility] | | | and Garyana [...] Team Providers + +------+ + | Care Form Setter Name | Role | Phone | + +------+ + | Nate Blackwell | PCP | | | MD | | | + +------+ + Encounter Details +--------+ + + + + | Date | Type | Department | Care Team | Description | +--------+ + + + + | 04/19/ | Orders Only | [facility] | Conversion | | | 2018 | | CONVERSION DEP 888 | Transaction, | | | | | [address] | Provider Unknown | | | | | [place] | [phone] | | | | | [address] | | | | | | [phone] | | | +--------+ + + + + Social History + +-------+ +--------+------+ | Tobacco Use | Types | Packs/Day | Years | Date | | | | | Used | | + +-------+ +--------+------+ | Former Smoker | | | | | + +-------+ [...] | | | | | [place] | | | | | | [id number] | | | | | | | | +--------+---------+ + + + documented as of this encounter Visit Diagnoses Not on filedocumented in this encounter"
--- OUTSIDE RECORDS SUMMARY | ~2019-08-13 | XMS | Clinical Summary ---
Demographics + + + | Address | [address] | | | [place] [address] | + + + | Home Phone | | + + + | Preferred Language | Unknown | + + + | Marital Status | | + + + | Adventist Affiliation | Unknown | + + + | Race | Unknown | + + + | Ethnic Group | Unknown | + + + Author + + + | Author | [facility] (Historical as of | | | 03-24-19) | + + + | Organization | [facility] (Historical as of | | | 03-24-19) [...] Team Providers + +------+ + | Care Physical Chemistry Professor Name | Role | Phone | + [...] | | | | Activ | | AYUHZHX-XUYELWMHC-JP | mouth daily. | | | | [...] | | | | Activ | | UP-Wsegknkzeq-Thyjoe | mouth daily. | | | | | e | | obalamin | | | | | | | | (SP-[id number] | | | | | | | [...] now notedHe is | | asymptomaticHe stays ihulfp0F echo normal LV functionReg EST | | [...] +------+-------+ + | MEDICARE | MEDICA | [id number] | | | [address] | | | RE | | | | [place] [address] | | | IP-OP | | | | | + +--------+ +------+-------+ + | [employer] | ODS | [id number] | | | | | | HEALTH [...] | von | | | [phone] | [phone] | + +--------+ +--------+ + +
--- OUTSIDE RECORDS SUMMARY | ~2019-08-13 | XMS | Encounter Summary ---
Demographics + + + | Address | [address] | | | [place] [address] | + + + | Home Phone | | + + + | Preferred Language | Unknown | + + + | Marital Status | | + + + | Worship Affiliation | Unknown | + + + | Race | Unknown | + + + | Ethnic Group | Unknown | + + + Author + + + | Author | [facility] | | | and Garyana | + + + | Organization | [facility] | | | and Garyana [...] Team Providers + +------+ + | Care Seat Cover Cutter Name | Role | Phone | + +------+ + | Nate Blackwell | PCP | | | MD | | | + +------+ + Encounter Details +--------+ + + + + | Date | Type | Department | Care Team | Description | +--------+ + + + + | 01/14/ | Orders Only | [facility] | Yanira Schmidt, | | | 2017 | | CARDIOLOGY JAIME | [address] | | | | | [address] | [place] | | | | | [place] | [address] | | | | | [address] | | | | | | [phone] | | | +--------+ + + + [...] [place] | | | | | | [address] | | | | | | | | +--------+---------+ + + + documented as of this encounter Visit Diagnoses Not on filedocumented in this encounter"
--- OUTSIDE RECORDS SUMMARY | ~2019-08-13 | XMS | Clinical Summary ---
Demographics + + + | Address | [address] | | | [place] [address] | + + + | Home Phone | | + + + | Preferred Language | Unknown | + + + | Marital Status | | + + + | Mormonism Affiliation | Unknown | + + + | Race | Unknown | + + + | Ethnic Group | Unknown | + + + Author + + + | Author | [facility] | | | and [place]ana | + + + | Organization | [facility] | | [...] Team Providers + +------+ + | Care Boat Person Name | Role | Phone | + +------+ + | Nate Blackwell | PCP | | | MD | | | + +------+ + Allergies + + + + + + | Active Allergy | Reactions | Severity | Noted | Comments | | | | | Date | | + + + + + + | Penicillins | Hives | High | 01/10/20 | | | | | | 14 | | + + + + + + Medications + + + +---------+------+------+-------+ | Medication | Sig | Dispensed | Refills | Star | End | Statu | | | | | | t | Date | s | | | | | | Date | | | + + + +---------+------+------+-------+ | Calcium | Take 1 tablet by | | 0 | 09/1 | | Activ | | Citrate-Vitamin D | mouth daily. | | | 2/20 | | e | | (CALCIUM CITRATE + | | | | 18 | | | | D3 PO) | | | | | | | + + + +---------+------+------+-------+ | aspirin 81 MG EC | Take 81 mg by mouth | | 0 | 06/0 | | Activ | | tablet | daily. | | | 4/20 | | e | | | | | | 14 | | | + + + +---------+------+------+-------+ | pravastatin | Take 80 mg by mouth | | 0 | 06/0 | | Activ | | (PRAVACHOL) 80 MG | nightly. | | | 11/25 | | e | | tablet | | | | 14 | | | + + + +---------+------+------+-------+ | omeprazole | Take 20 mg by mouth | | 0 | 04/08 | | Activ | | (PRILOSEC) 20 mg | every morning before | | | 12/25 | | e | | capsule | breakfast. | | | 16 | | | + + + +---------+------+------+-------+ | Cholecalciferol | Take 2,000 Units by | | 0 | 04/08 | | Activ | | (VITAMIN D-3) 2000 | mouth daily. | | | 12/25 | | e | | units CAPS | | | | 16 | | | + + + +---------+------+------+-------+ | folic | Take 1 tablet by | | 0 | 04/08 | | Activ | | hqxx-cejbowtggu-lugy | mouth daily. | | | 12/25 | | e | | ocobalamin (FOLBIC) | | | | 16 | | | | 2.5-25-2 MG TABS | | | | | | | + + + +---------+------+------+-------+ | metoprolol | Take 0.5 tablets by | 45 | 3 | | | Activ | | succinate | mouth daily. | tablet | | 04/27 | | e | | (TOPROL-XL) 25 mg 24 | | | | 17 | | | | hr tablet | | | | | | | + + + +---------+------+------+-------+ +---+ + | | Additional | | | informationPatient | | | taking differently: | | | 12.5 mg Oral | | | NIGHTLY, Reported on | | | 06/11/2019 11:16 AM | +---+ + Active Problems + + + | Problem | Noted Date | + + + | Murmur, cardiac | 06/11/2019 | + + + | Right bundle branch block | 01/23/2015 | + + + | HTN (hypertension) | 01/09/2014 | + + + | Hyperlipidemia | 01/09/2014 | + + + + + | Overview: | + + + + + | PUD (peptic ulcer disease) | 01/09/2014 | + + + + + | Overview: History of | + + Encounters +--------+---------+ + + + | Date | Type | Specialty | Care Team | Description | +--------+---------+ + + + | 06/11/ | Office | Cardiology | Trina Verdugo | Right bundle branch | | 2019 | Visit | | HAO Antony | block (Primary Dx); | | | | | | Essential | | | | | | hypertension; Mixed | | | | | | hyperlipidemia; | | | | | | Murmur, cardiac | +--------+---------+ + + + from Last 3 Months Family History + + +------+ + | [...] | | + +------+ + + | Father | | | | + +------+ + + | Mother | | | pancreatic cancer | | | | (Age | | | | | 89) | | + +------+ + + | Mother | | | | + +------+ + + Social History + +-------+ +--------+ [...] recent travel history available. | + + Last Filed Vital Signs + [...] | Respiratory Rate | 16 | 04/22/2016 12:06 PM | | | | | PDT | | + + + + + [...] | | + + + + + Plan of Treatment +--------+---------+ + + + | Date | Type | Specialty | Care Team | Description | +--------+---------+ + + + | 11/06/ Office | Cardiology | Yanira Schmidt, | | | 2019 | Visit | | MD Chon THAYER | | | | | | [place], [place] | | | | | | [address] | | | | | | | | +--------+---------+ + + + + + + + + | Health Maintenance | Due Date | Last Done | Comments | + + + + + | Vaccine: | | | | | Pneumococcal 65+ (1 | 6 | | | | of 2 - PCV13) | | | | + + + + + | Vaccine: Zoster (2 | | 05/11/2006 | | | of 3) | 6 | | | + + + + + | Adult Annual | | | | | Wellness Visit | 9 | | | + + + + + | Vaccine: | | 11/02/2018, 09/08/2016 | | | Dtap/Tdap/Td (3 - | 9 | | | | Td) | | | | + + + + + | Vaccine: Influenza | Completed | 05/26/2019, 05/15/2018, | | | | | 05/17/2017, Additional history | | | | | exists | | + + + + + Procedures + +--------+ + + + | [...] | | + +--------+ + + + from Last 3 Months Results ECG 12 lead (06/11/2019 10:27 AM [...] | | | | | by [facility] Read Only, | | | | | | [facility] ([id number]), | | | | | | health editor Dima Clements | | | | [...] | | | + +---------+ + + from Last 3 Months Insurance + +--------+ +--------+ + +--------+ | Payer | Benefi | Subscriber | Effect | Phone | Address | Type | | | t Plan | ID | tomi | | | | | | / | | Dates | | | | | | Group | | | | | | + +--------+ +--------+ + +--------+ | MEDICARE | MEDICA | [id number] | 11/06/18 | [phone] | | Medica | | | RE | | 96-Pre | 5 | | re | | | PART A | | sent | | | | | | AND B | | | | | | + +--------+ +--------+ + +--------+ | MEDICARE | MEDICA | [id number] | 11/06/18 | [phone] | | Medica | | | RE | | 96-Pre | 5 | | re | | | PART A | | sent | | | | | | AND B | | | | | | + +--------+ +--------+ + +--------+ | MODA | MODA | [id number] | 10/07/19 | [phone] | [address] | Indemn | | | HEALTH | | 08-Pre | 9 | [phone] | ity | | | MDCR | | sent | | [place], | | | | [place] | | | | [place] [address] | | + +--------+ +--------+ + +--------+ | MODA | MODA | [id number] | 08/08/19 | [phone] | [address] | Indemn | | | HEALTH | | 19-Pre | 9 | [phone] | ity | | | MDCR | | sent | | [place], | | | | [place] | | | | [place] [address] | | + +--------+ +--------+ + +--------+ + +--------+ +--------+ + + | Guarantor Name | Accoun | Relation to | Date | Phone | Billing Address | | | t Type | Patient | of | | | | | | | | | | + +--------+ +--------+ + + | Tiana Hirsch | Person | Self | [birth year] | | [address] | | | al/Fam | | 1930 | [phone] | [place] [address] | | | von | | | 4 (Home) | | + +--------+ +--------+ + + | Tiana Hirsch | Person | Self | [birth year] | | [address] | | | al/Fam | | 1931 | [phone] [place] [address] | | | von | | | 4 (Home) | | + +--------+ +--------+ + + Advance Directives + + + + + | Type | Date Recorded | Patient | Explanation | | | | Certified Nuclear Medicine Technologist | | + + + + + | Power of | | | | | Supervisor Mixing | | | | + + + + + | Advance | | | | | Directive | | | | + + + + +
--- OUTSIDE RECORDS SUMMARY | ~2019-08-13 | XMS | Encounter Summary ---
Demographics + + + | Address | [address] | | | [place] [address] | + + + | Home Phone | | + + + | Preferred Language | Unknown | + + + | Marital Status | | + + + | Catholic Affiliation | Unknown | + + + | Race | Unknown | + + + | Ethnic Group | Unknown | + + + Author + + + | Author | [facility] | | | and Garyana | + + + | Organization | [facility] | | | and [...] Team Providers + +------+ + | Care Weather Forcaster Name | Role | Phone | + +------+ + | Nate Blackwell | PCP | | | MD | | | + +------+ + Encounter Details +--------+ + + + + | Date | Type | Department | Care Team | Description | +--------+ + + + + | 01/14/ | Orders Only | [facility] | Yanira Schmidt, | | | 2017 | | CARDIOLOGY JAIME | [address] | | | | | [address] | [place] | | | | | [place] | [address] | | | | | [address] | | | | | | [phone] | | | +--------+ + + + [...] SKINNER | | | | | | [address] | | | | | | | | +--------+---------+ + + + documented as of this encounter Visit Diagnoses Not on filedocumented in this encounter"
--- OUTSIDE RECORDS SUMMARY | ~2019-08-13 | XMS | Encounter Summary ---
Demographics + + + | Address | [address] | | | [place] [address] | + + + | Home Phone | | + + + | Preferred Language | Unknown | + + + | Marital Status | | + + + | Yarsani Affiliation | Unknown | + + + | Race | Unknown | + + + | Ethnic Group | Unknown | + + + Author + + + | Author | [facility] | | | and Garyana | + + + | Organization | [facility] | | | and Garyana [...] Team Providers + +------+ + | Care Canvas Products Sales Representative Name | Role | Phone | + +------+ + | Nate Blackwell | PCP | | | MD | | | + +------+ + Encounter Details +--------+ + + + + | Date | Type | Department | Care Team | Description | +--------+ + + + + | 02/11/ | Orders Only | [facility] | Saul Hernandez | | | 2015 | | CARDIOLOGY JAIME | [address] | | | | | [address] | [address] | | | | | [place] | [place] [address] | | | | | [address] | [phone] | | | | | [phone] | | | +--------+ + + + [...] [place]INNER | | | | | | [address] | | | | | | | [...] : 1930 | | | Performing Physician: aSul Hernandez | | | | | | [...] | | Walt: 0.99 m/s MV Dec [place]: 3.18 m/s2 MV DecT: 201.00 ms | [...] TR Vmax: 2.27 m/s | | | Sewer And Drain Technician: REE Authenticated by: Saul Hernandez Report | [...] cmLVIDd: 4.48 cmLVPWd: 1.11 cmLVOT Area: 4.17 [id number] Diam: 2.30 cm%FS: 43.82 | | %EF(Teich): [...] (A-L): 33.25 ml/m2LAAs A2C: | | 21.09 [id number] A-L A2C: 67.97 mlLALs A2C: 5.55 cmLAAs A4C: 19.31 iw7UMSOY A-L A4C: | | 62.09 mlLALs A4C: 5.09 cmAo Diam: 3.71 cmLA Diam: 3.60 cmLA/Ao: 0.97AV maxPG: | | 7.96 mmHgAV meanP.80 mmHgAV Vmax: 1.41 m/Magdalena Vmean: 0.89 m/Magdalena VTI: 25.39 | | cmAVA Vmax: 3.31 cm2AVA (VTI): 3.29 jm4ATUS maxP.02 mmHgLVOT meanP.15 | | mmHgLVSI Dopp: 40.97 ml/m2LVSV Dopp: 83.58 mlLVOT Vmax: 1.12 m/sLVOT Vmean: 0.65 | | m/sLVOT VTI: 20.03 cmIVRT: 89.96 msMV A Walt: 0.99 m/sMV Dec Renville: 3.18 m/s2MV | | DecT: 201.00 msMV E Walt: 0.64 m/sMV E/A Ratio: 0.64MV PHT: 58.29 msMVA By PHT: | | 3.77 pl7Cjwhle e': 0.08 m/sSeptal E/e': 7.73Lateral e': 0.07 m/sLateral E/e': | | 8.60RAP: 5 mmHgRVSP: 25.67 mmHgTR maxP.67 mmHgTR Vmax: 2.27 m/s | | Sewer And Drain Technician: DHAuthenticated by: Saul Ayoub Date/Time: 02-11-2015 18:59:58 [...] A Walt: 0.99 m/s | |MV Dec [place]: 3.18 m/s2 | |MV DecT: 201.00 ms [...] |TR Vmax: 2.27 m/s | | | |Sewer And Drain Technician: | |Authenticated by: Saul Hernandez | |Report Date/Time: 02-11-2015 18:59:58 | | | |IMPRESSION: | |1. Overall left ventricular systolic function is normal with, an EF between 65 - 70 %. | + + documented in this encounter Visit Diagnoses Not on filedocumented in this encounter"
--- OUTSIDE RECORDS SUMMARY | ~2019-08-13 | XMS | Encounter Summary ---
Demographics + + + | Address | [address] | | | [place] [address] | + + + | Home Phone | | + + + | Preferred Language | Unknown | + + + | Marital Status | | + + + | Jainism Affiliation | Unknown | + + + | Race | Unknown | + + + | Ethnic Group | Unknown | + + + Author + + + | Author | [facility] | | | and [place]ana | + + + | Organization | [facility] | | | and Garyana [...] Team Providers + +------+ + | Care Naval Engineer Name | Role | Phone | + [...] | | | | [place] | [phone] | | | | | [address] | | | | | | [phone] | | | +--------+ + + + [...] | | | | | [place], [place] | | | | | | [address] | | | | | | | | +--------+---------+ + + + documented as of this encounter Visit Diagnoses Not on filedocumented in this encounter"
--- OUTSIDE RECORDS SUMMARY | ~2019-08-13 | XMS | Encounter Summary ---
Demographics + + + | Address | [address] | | | [place] [address] | + + + | Home Phone | | + + + | Preferred Language | Unknown | + + + | Marital Status | | + + + | Shinto Affiliation | Unknown | + + + | Race | Unknown | + + + | Ethnic Group | Unknown | + + + Author + + + | Author | [facility] | | | and [place]ana | + + + | Organization | [facility] | [...] Team Providers + +------+ + | Care Gum Dipper Name | Role | Phone | + +------+ + | Nate Blackwell | PCP | | | MD | | | + +------+ + Encounter Details +--------+ + + + + | Date | Type | Department | Care Team | Description | +--------+ + + + + | 02/11/ | Orders Only | [facility] | Saul Hernandez | | | 2015 | | CARDIOLOGY JAIME Vaughan MD [address] | | | | | [address] | [address] | | | | | [address] | [place] [address] | | | | | [place], [place] | [phone] | | | | | [address] | | | | | | [phone] | | | +--------+ + + + [...] [place] | | | | | | [address] | | | | | | | [...] Performed At | + + + | [facility] CARDIOLOGY Treadmill Stress Test TEST DATE: | [...] | BP: 211 / 59 . RPP: 98600. METS: 6.20. Symptoms: bilateral leg | | [...] Conversion - 03/30/2019 9:[address] [facility] CARDIOLOGYTreadmill | | Stress Test [...] Max BP: 211 / 59 . RPP: 49988. | | METS: 6.20. Symptoms: bilateral leg [...]
--- OUTSIDE RECORDS SUMMARY | ~2019-08-13 | XMS | Encounter Summary ---
Demographics + + + | Address | [address] | | | [place] [address] | + + + | Home Phone | | + + + | Preferred Language | Unknown | + + + | Marital Status | | + + + | Uatsdin Affiliation | Unknown | + + + | Race | Unknown | + + + | Ethnic Group | Unknown | + + + Author + + + | Author | [facility] | | | and [place]ana | + + + | Organization | [facility] | | | and [place]ana | [...] Team Providers + +------+ + | Care Sales Engagement Executive Name | Role | Phone | + +------+ + | Nate Blackewll | PCP | | | MD | [...] | | | | [place] | [phone] | | | | | [address] | | | | | | [phone] | | | +--------+ + + + [...] | | | | | [place] | | | | | | [address] | | | | | | | | +--------+---------+ + + + documented as of this encounter Visit Diagnoses Not on filedocumented in this encounter"
--- OUTSIDE RECORDS SUMMARY | ~2019-08-13 | XMS | Clinical Summary ---
Demographics + + + | Address | [address] | | | [place] [address] | + + + | Home Phone [...] | Author | [facility] | | | and Garyana | + + + | Organization | [facility] | | | and [...] Team Providers + +------+ + | Care Mining Detail Draftsperson Name | Role | Phone | + [...] | 04/08 | | Activ | | piud-czixirtsja-jtbw | mouth daily. | | | 12/25 [...] | | | | | [place], [place] | | | | | | [address] | | | | | | | [...] | | | | | by [facility] Read Only, | | | | | | [facility] ([id number]), | | | | | | video [...] + +--------+ | MEDICARE | MEDICA | [id number] | 11/06/18 | [phone] | | Medica | | | RE | | 96-Pre | 5 | | re | | | PART A | | sent | | | | | | AND B | | | | | | + +--------+ +--------+ + +--------+ | MEDICARE | MEDICA | [id number] | 11/06/18 | [phone] | | Medica | | | RE | | 96-Pre | 5 | | re | | | PART A | | sent | | | | | | AND B | | | | | | + +--------+ +--------+ + +--------+ | MODA | MODA | [id number] | 10/07/19 | [phone] | [address] | Indemn | | | HEALTH | | 08-Pre | 9 | [phone] | ity | | | MDCR | | sent | | [place], | | | | [place] | | | | [place] [address] | | + +--------+ +--------+ + +--------+ | MODA | MODA | [id number] | 08/08/19 | [phone] | [address] | Indemn | | | HEALTH | | 19-Pre | 9 | [phone] | ity | | | MDCR | | sent | | [place], | | | | [place] | | | | [place] [address] | | + +--------+ +--------+ + +--------+ [...] | 1930 | [phone] | [place] [address] | | | von | | | 4 (Home) | | + +--------+ +--------+ + + | Tiana Hirsch | Person | Self | [birth year] | | [address] | | | al/Fam | | 1931 | [phone] | [place] [address] | | | von | | | 4 (Home) | | + +--------+ +--------+ + + Advance Directives + + + + + | Type | Date Recorded | Patient | Explanation | | | | Jukebox Coin Collector | | + + + + + | Power of | | | | | Fiscal Assistant | | | | + + + + + | Advance | | | | | Directive | | | | + + + + +
--- OUTSIDE RECORDS SUMMARY | ~2019-08-13 | XMS | Encounter Summary ---
Demographics + + + | Address | [address] | | | [place] [address] | + + + | Home Phone | | + + + | Preferred Language | Unknown | + + + | Marital Status | | + + + | Taoism Affiliation | Unknown | + + + | Race | Unknown | + + + | Ethnic Group | Unknown | + + + Author + + + | Author | [facility] | | | and Garyana | + + + | Organization | [facility] | | | and [...] Team Providers + +------+ + | Care Executive Vice President And Chief Operating Officer Name | Role | Phone | + [...] | | | | [place] | [phone] | | | | | [address] | | | | | | [phone] | | | +--------+ + + + [...] | | | | | [place], [place] | | | | | | [address] | | | | | | | | +--------+---------+ + + + documented as of this encounter Visit Diagnoses Not on filedocumented in this encounter"
--- OUTSIDE RECORDS SUMMARY | ~2019-08-13 | XMS | Clinical Summary ---
Demographics + + + | Address | [address] | | | [place] [address] | + + + | Home Phone | | + + + | Preferred Language | Unknown | + + + | Marital Status | | + + + | Tenriism Affiliation | Unknown | + + + | Race | Unknown | + + + | Ethnic Group | Unknown | + + + Author + + + | Author | [employer] [facility] (Historical as of | | | 03-24-19) | + + + | Organization | [facility] (Historical as of | | | 03-24-19) [...] Team Providers + +------+ + | Care Amusement Ride Inspector Name | Role | Phone | [...] | | | | Activ | | [id number] | mouth daily. | | | | [...] | | | | Activ | | TO-Qbooiqabzx-Axybcp | mouth daily. | | | | | e | | obalamin | | | | | | | | ([id number]-[id number]-ZAIBU | | | | | | | [...] now notedHe is | | asymptomaticHe stays conwai5S echo normal LV functionReg EST | | [...] +------+-------+ + | MEDICARE | MEDICA | [id number] | | | [address] | | | RE | | | | [place] [address] | | | IP-OP | | | | | + +--------+ +------+-------+ + | [employer]AN | ODS | [id number] | | | | | | HEALTH [...] | von | | | [phone] | [address] | + +--------+ +--------+ + +
--- OUTSIDE RECORDS SUMMARY | ~2019-08-13 | XMS | Encounter Summary ---
Demographics + + + | Address | [address] | | | [place] [address] | + + + | Home Phone | | + + + | Preferred Language | Unknown | + + + | Marital Status | | + + + | Anabaptism Affiliation | Unknown | + + + | Race | Unknown | + + + | Ethnic Group | Unknown | + + + Author + + + | Author | [facility] | | | and [place]ana | + + + | Organization | [facility] | | | and [...] Team Providers + +------+ + | Care Artificial Breast Fabricator Name | Role | Phone | + +------+ + | Nate Blackwell | PCP | | | MD | | | + +------+ + Encounter Details +--------+ + + + + | Date | Type | Department | Care Team | Description | +--------+ + + + + | 02/11/ | Orders Only | [facility] | Saul Hernandez | | | 2015 | | CARDIOLOGY JAIME | [address] | | | | | [address] | [address] | | | | | [place] | [place] [address] | | | | | [address] | [phone] | | | | | [phone] | | | +--------+ + + + [...] [place]NER | | | | | | [address] | | | | | | | [...] | | Walt: 0.99 m/s MV Dec Will: 3.18 m/s2 MV DecT: 201.00 ms | [...] TR Vmax: 2.27 m/s | | | Manager Float: REE Authenticated by: Saul Hernandez Report | [...] cmLVIDd: 4.48 cmLVPWd: 1.11 cmLVOT Area: 4.17 lm9GWWH Diam: 2.30 cm%FS: 43.82 | | %EF(Teich): [...] (A-L): 33.25 ml/m2LAAs A2C: | | 21.09 dy0WQGLX A-L A2C: 67.97 mlLALs A2C: 5.55 cmLAAs A4C: 19.31 eg5ITWMA A-L A4C: | | 62.09 mlLALs A4C: 5.09 cmAo Diam: 3.71 cmLA Diam: 3.60 cmLA/Ao: 0.97AV maxPG: | | 7.96 mmHgAV meanP.80 mmHgAV Vmax: 1.41 m/Magdalena Vmean: 0.89 m/Magdalena VTI: 25.39 | | cmAVA Vmax: 3.31 cm2AVA (VTI): 3.29 yj8WAWC maxP.02 mmHgLVOT meanP.15 | | mmHgLVSI Dopp: 40.97 ml/m2LVSV Dopp: 83.58 mlLVOT Vmax: 1.12 m/sLVOT Vmean: 0.65 | | m/sLVOT VTI: 20.03 cmIVRT: 89.96 msMV A Walt: 0.99 m/sMV Dec Will: 3.18 m/s2MV | | DecT: 201.00 msMV E Walt: 0.64 m/sMV E/A Ratio: 0.64MV PHT: 58.29 msMVA By PHT: | | 3.77 yt6Vneizm e': 0.08 m/sSeptal E/e': 7.73Lateral e': 0.07 m/sLateral E/e': | | 8.60RAP: 5 mmHgRVSP: 25.67 mmHgTR maxP.67 mmHgTR Vmax: 2.27 m/s | | Manager Float: DHAuthenticated by: Saul Ayoub Date/Time: 02-11-2015 18:59:58 [...] A Walt: 0.99 m/s | |MV Dec Will: 3.18 m/s2 | |MV DecT: 201.00 ms [...] |TR Vmax: 2.27 m/s | | | |Manager Float: | |Authenticated by: Saul Hernandez | |Report Date/Time: 02-11-2015 18:59:58 | | | |IMPRESSION: | |1. Overall left ventricular systolic function is normal with, an EF between 65 - 70 %. | + + documented in this encounter Visit Diagnoses Not on filedocumented in this encounter"
== END 2019-08-13 18:01 | disposition left against medical advice (07) ==
LOC: ED 17:00
DX: Z53.21 Procedure and treatment not carried out due to patient leaving prior to being seen by health care provider (principal)

== ENCOUNTER 2019-08-15 13:58 | Emergency (ER) | payer MEDICARE, OTHER ==
[~2019-08-15] VITALS: Ht 180.3 cm; Wt 80.7 kg
--- OUTSIDE RECORDS SUMMARY | ~2019-08-15 | XMS | Encounter Summary ---
Demographics + + + | Address | [address] | | | [place] [address] | + + + | Home Phone | | + + + | Preferred Language | Unknown | + + + | Marital Status | | + + + | Scientology Affiliation | Unknown | + + + | Race | Unknown | + + + | Ethnic Group | Unknown | + + + Author + + + | Author | [facility] | | | and [place] | + + + | Organization | [facility] | | | and [place] | + + + | Address | Unknown | + + + | Phone | Unavailable | + + + Support + + +---------+ + | Name | Relationship | Address | Phone | + + +---------+ + | Suzanna Hirsch | ECON | Unknown | | + + +---------+ + Care Team Providers + +------+ + | Care Daycare Worker Name | Role | Phone | + +------+ + | Nate Blackwell | PCP | | | MD | | | + +------+ + Encounter Details +--------+ + + + + | Date | Type | Department | Care Team | Description | +--------+ + + + + | 01/14/ | Orders Only | [facility] | Yanira Schmidt, | | | 2017 | | CARDIOLOGY JAIME | [address] | | | | | [address] | [place] | | | | | [place] | [address] | | | | | [address] | | | | | | [phone] | | | +--------+ + + + + Social History + +-------+ +--------+------+ | Tobacco Use | Types | Packs/Day | Years | Date | | | | | Used | | + +-------+ +--------+------+ | Never Assessed | | | | | + +-------+ +--------+------+ + + + | Sex Assigned at | Date Recorded | | | | + + + | Not on file | | + + + + + + + | Job Start Date | Occupation | Industry | + + + + | Not on file | Not on file | Not on file | + + + + + + + + | Travel History | Travel Start | Travel End | + + + + + + | No recent travel history available. | + + documented as of this encounter Plan of Treatment +--------+---------+ + + + | Date | Type | Specialty | Care Team | Description | +--------+---------+ + + + | 11/06/ | Office | Cardiology | Yanira Schmidt, | | | 2019 | Visit | | MD [address] | | | | | | [place] | | | | | | [address] | | | | | | | | +--------+---------+ + + + documented as of this encounter Visit Diagnoses Not on filedocumented in this encounter"
--- OUTSIDE RECORDS SUMMARY | ~2019-08-15 | XMS | Encounter Summary ---
Demographics + + + | Address | [address] | | | [place] [address] | + + + | Home Phone | | + + + | Preferred Language | Unknown | + + + | Marital Status | | + + + | Pentecostalism Affiliation | Unknown | + + + | Race | Unknown | + + + | Ethnic Group | Unknown | + + + Author + + + | Author | [facility] | | | and [place] | + + + | Organization | [facility] | | | and [place] | [...] Team Providers + +------+ + | Care Installation Superintendent Name | Role | Phone | + +------+ + | Nate Blackwell | PCP | | | MD | | | + +------+ + Encounter Details +--------+ + + + + | Date | Type | Department | Care Team | Description | +--------+ + + + + | 02/11/ | Orders Only | [facility] | Saul Hernandez | | | 2015 | | CARDIOLOGY JAIME | [address] | | | | | ECHO [address] | [address] | | | | | [place] | [place] [address] | | | | | [address] | [phone] | | | | | [phone] | | | +--------+ + + + [...] Cardiology | Yanira Schmidt, | | | 2020 | Visit | | MD [address] | | | | | | [place] | | | | | | [address] | | | | | | | | +--------+---------+ + + + documented as of this encounter Procedures + +--------+ + + + | Procedure Name | Priori | Date/Time | Associated Diagnosis | Comments | | | ty | | | | + +--------+ + + + | ECHO COMPLETE | Routin | 02/11/2015 | | Results for this | | | e | 4:38 PM | | procedure are in the | | | | PDT | | results section. | + +--------+ + + + documented in this encounter Results ECHO Complete (02/11/2015 4:38 PM PDT) + + | Specimen | + + | | + + + + + | Impressions | Performed At | + + + | 1. Overall left ventricular systolic function is normal with, an EF | | | between 65 - 70 %. | | + + + + + + | Narrative | Performed At | + + + | Patient Name: NIKKI HIRSCH Date of : 1930 | | | Performing Physician: Saul Hernandez | | | | | | INDICATIONS Cardiomyopathy CONCLUSIONS | | | 1. Overall left ventricular systolic function is normal with, an EF | | | between 65 - 70 %. FINDINGS -------- ECG rhythm: Sinus rhythm. | | | Study: A 2-dimensional transthoracic echocardiogram with m-mode, | | | spectral and color flow Doppler was perfomed. Study: This was a | | | technically adequate study. Left Ventricle: Overall left ventricular | | | systolic function is normal with, an EF between 65 - 70 %. Left | | | Ventricle: The left ventricle cavity size is normal. Left Ventricle: | | | Left ventricular wall thickness is normal. Left Ventricle: No | | | regional wall motion abnormalities. Left Ventricle: The diastolic | | | filling pattern indicates impaired relaxation consistent with mild | | | dysfunction (Grade I). Right Ventricle: The right ventricle is normal | | | in size. Left Atrium: The left atrium is mildly enlarged. Right | | | Atrium: The right atrium is normal in size. Aortic Valve: Aortic | | | valve is trileaflet and is mildly thickened. Aortic Valve: Trace | | | amount of aortic regurgitation. Aortic Valve: There is no evidence of | | | aortic stenosis. Mitral Valve: The mitral valve is normal. Mitral | | | Valve: There is trace mitral regurgitation. Tricuspid Valve: The | | | tricuspid valve appears structurally normal. Tricuspid Valve: Trace | | | tricuspid regurgitation present. Tricuspid Valve: There is no | | | evidence of pulmonary hypertension. Tricuspid Valve: The right | | | ventricular systolic pressure (pulmonary artery systolic pressure), as | | | measured by Doppler, is 25.68mmHg. Pulmonic Valve: The pulmonic | | | valve is normal. Pulmonic Valve: Trace pulmonic regurgitation. | | | Pericardium: There is no pericardial effusion. IVC/Hepatic Veins: The | | | IVC is normal size (1.5-2.5cm) and collapses >50% with sniff, | | | consistent with central venous pressures of 5-10mmHg. 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 Mass: No mass | | | visualized Thrombus: No clot visualized Thrombus: No vegetation | | | visualized. Septum: No ASD observed. Septum: No VSD observed. | | | MEASUREMENTS Ao asc: 3.85 cm IVC: 2.18 cm LA | | | Major: 5.19 cm EDV(Teich): 91.90 ml IVSd: 1.01 cm LVIDd: | | | 4.48 cm LVPWd: 1.11 cm LVOT Area: 4.17 cm2 LVOT Diam: | | | 2.30 cm %FS: 43.82 % EF(Teich): 75.18 % ESV(Teich): 22.80 | | | ml LVIDs: 2.52 cm SV(Teich): 69.09 ml RA Major: 4.98 cm | | | RVIDd: 3.09 cm LVEF MOD A2C: 62.91 % SV MOD A2C: 58.71 ml | | | LVEF MOD A4C: 67.83 % SV MOD A4C: 66.31 ml EF Biplane: | | | 65.45 % LVEDV MOD BP: 95.89 ml LVESV MOD BP: 33.12 ml LVEDV | | | MOD A2C: 93.32 ml LVLd A2C: 8.38 cm LVEDV MOD A4C: 97.75 ml | | | LVLd A4C: 8.55 cm LVESV MOD A2C: 34.60 ml LVLs A2C: 6.83 | | | cm LVESV MOD A4C: 31.43 ml LVLs A4C: 6.73 cm LAESV(A-L): | | | 67.83 ml LAESV Index (A-L): 33.25 ml/m2 LAAs A2C: 21.09 cm2 | | | LAESV A-L A2C: 67.97 ml LALs A2C: 5.55 cm LAAs A4C: 19.31 | | | cm2 LAESV A-L A4C: 62.09 ml LALs A4C: 5.09 cm Ao Diam: | | | 3.71 cm LA Diam: 3.60 cm LA/Ao: 0.97 AV maxP.96 mmHg | | | AV meanP.80 mmHg AV Vmax: 1.41 m/s AV Vmean: 0.89 m/s | | | AV VTI: 25.39 cm RYLEE Vmax: 3.31 cm2 RYLEE (VTI): 3.29 cm2 | | | LVOT maxP.02 mmHg LVOT meanP.15 mmHg LVSI Dopp: | | | 40.97 ml/m2 LVSV Dopp: 83.58 ml LVOT Vmax: 1.12 m/s LVOT | | | Vmean: 0.65 m/s LVOT VTI: 20.03 cm IVRT: 89.96 ms MV A | | | Walt: 0.99 m/s MV Dec Taylor: 3.18 m/s2 MV DecT: 201.00 ms | | | MV E Walt: 0.64 m/s MV E/A Ratio: 0.64 MV PHT: 58.29 ms MVA | | | By PHT: 3.77 cm2 Septal e': 0.08 m/s Septal E/e': 7.73 | | | Lateral e': 0.07 m/s Lateral E/e': 8.60 RAP: 5 mmHg RVSP: | | | 25.67 mmHg TR maxP.67 mmHg TR Vmax: 2.27 m/s | | | Log Chipper Operator: REE Authenticated by: Saul Hernandez Report | | | Date/Time: 02-11-2015 18:59:58 | | + + + + + | Procedure Note | + + | Angel, Rad Conversion - 03/29/2019 11:58 PM PDT Patient Name: Ioana HIRSCH of | | : 1930 Performing Physician: Saul | | Mary INDICATIONS----- | | ------Cardiomyopathy CONCLUSIONS 1. Overall left ventricular systolic function | | is normal with, an EF between 65 - 70 %. FINDINGS--------ECG rhythm: Sinus | | rhythm.Study: A 2-dimensional transthoracic echocardiogram with m-mode, spectral and | | color flow Doppler was perfomed.Study: This was a technically adequate study.Left | | Ventricle: Overall left ventricular systolic function is normal with, an EF between 65 - | | 70 %.Left Ventricle: The left ventricle cavity size is normal.Left Ventricle: Left | | ventricular wall thickness is normal.Left Ventricle: No regional wall motion | | abnormalities.Left Ventricle: The diastolic filling pattern indicates impaired | | relaxation consistent with mild dysfunction (Grade I).Right Ventricle: The right | | ventricle is normal in size.Left Atrium: The left atrium is mildly enlarged.Right | | Atrium: The right atrium is normal in size.Aortic Valve: Aortic valve is trileaflet and | | is mildly thickened.Aortic Valve: Trace amount of aortic regurgitation.Aortic Valve: | | There is no evidence of aortic stenosis.Mitral Valve: The mitral valve is normal.Mitral | | Valve: There is trace mitral regurgitation.Tricuspid Valve: The tricuspid valve appears | | structurally normal.Tricuspid Valve: Trace tricuspid regurgitation present.Tricuspid | | Valve: There is no evidence of pulmonary hypertension.Tricuspid Valve: The right | | ventricular systolic pressure (pulmonary artery systolic pressure), as measured by | | Doppler, is 25.68mmHg.Pulmonic Valve: The pulmonic valve is normal.Pulmonic Valve: Trace | | pulmonic regurgitation.Pericardium: There is no pericardial effusion.IVC/Hepatic | | Veins: The IVC is normal size (1.5-2.5cm) and collapses >50% with sniff, consistent with | | central venous pressures of 5-10mmHg.Aorta: The ascending aorta is dilated measuring up | | to 3.9cm.Mass: No mass visualizedThrombus: No clot visualizedThrombus: No vegetation | | visualized.Septum: No ASD observed.Septum: No VSD observed. MEASUREMENTS Ao | | asc: 3.85 cmIVC: 2.18 cmLA Major: 5.19 cmEDV(Teich): 91.90 mlIVSd: 1.01 | | cmLVIDd: 4.48 cmLVPWd: 1.11 cmLVOT Area: 4.17 [id number] Diam: 2.30 cm%FS: 43.82 | | %EF(Teich): 75.18 %ESV(Teich): 22.80 mlLVIDs: 2.52 cmSV(Teich): 69.09 mlRA | | Major: 4.98 cmRVIDd: 3.09 cmLVEF MOD A2C: 62.91 %SV MOD A2C: 58.71 mlLVEF MOD | | A4C: 67.83 %SV MOD A4C: 66.31 mlEF Biplane: 65.45 %LVEDV MOD BP: 95.89 mlLVESV | | MOD BP: 33.12 mlLVEDV MOD A2C: 93.32 mlLVLd A2C: 8.38 cmLVEDV MOD A4C: 97.75 | | mlLVLd A4C: 8.55 cmLVESV MOD A2C: 34.60 mlLVLs A2C: 6.83 cmLVESV MOD A4C: 31.43 | | mlLVLs A4C: 6.73 cmLAESV(A-L): 67.83 mlLAESV Index (A-L): 33.25 ml/m2LAAs A2C: | | 21.09 [id number] A-L A2C: 67.97 mlLALs A2C: 5.55 cmLAAs A4C: 19.31 [id number] A-L A4C: | | 62.09 mlLALs A4C: 5.09 cmAo Diam: 3.71 cmLA Diam: 3.60 cmLA/Ao: 0.97AV maxPG: | | 7.96 mmHgAV meanP.80 mmHgAV Vmax: 1.41 m/Magdalena Vmean: 0.89 m/Magdalena VTI: 25.39 | | cmAVA Vmax: 3.31 cm2AVA (VTI): 3.29 [id number] maxP.02 mmHgLVOT meanP.15 | | mmHgLVSI Dopp: 40.97 ml/m2LVSV Dopp: 83.58 mlLVOT Vmax: 1.12 m/sLVOT Vmean: 0.65 | | m/sLVOT VTI: 20.03 cmIVRT: 89.96 msMV A Walt: 0.99 m/sMV Dec Taylor: 3.18 m/s2MV | | DecT: 201.00 msMV E Walt: 0.64 m/sMV E/A Ratio: 0.64MV PHT: 58.29 msMVA By PHT: | | 3.77 [id number] e': 0.08 m/sSeptal E/e': 7.73Lateral e': 0.07 m/sLateral E/e': | | 8.60RAP: 5 mmHgRVSP: 25.67 mmHgTR maxP.67 mmHgTR Vmax: 2.27 m/s | | Log Chipper Operator: DHAuthenticated by: Saul Ayoub Date/Time: 02-11-2015 18:59:58 | | IMPRESSION: 1. Overall left ventricular systolic function is normal with, an EF between | | 65 - 70 %. | |Septum: No ASD observed. | |Septum: No VSD observed. | | | |MEASUREMENTS | | | |Ao asc: 3.85 cm | |IVC: 2.18 cm | |LA Major: 5.19 cm | |EDV(Teich): 91.90 ml | |IVSd: 1.01 cm | |LVIDd: 4.48 cm | |LVPWd: 1.11 cm | |LVOT Area: 4.17 cm2 | |LVOT Diam: 2.30 cm | |%FS: 43.82 % | |EF(Teich): 75.18 % | |ESV(Teich): 22.80 ml | |LVIDs: 2.52 cm | |SV(Teich): 69.09 ml | |RA Major: 4.98 cm | |RVIDd: 3.09 cm | |LVEF MOD A2C: 62.91 % | |SV MOD A2C: 58.71 ml | |LVEF MOD A4C: 67.83 % | |SV MOD A4C: 66.31 ml | |EF Biplane: 65.45 % | |LVEDV MOD BP: 95.89 ml | |LVESV MOD BP: 33.12 ml | |LVEDV MOD A2C: 93.32 ml | |LVLd A2C: 8.38 cm | |LVEDV MOD A4C: 97.75 ml | |LVLd A4C: 8.55 cm | |LVESV MOD A2C: 34.60 ml | |LVLs A2C: 6.83 cm | |LVESV MOD A4C: 31.43 ml | |LVLs A4C: 6.73 cm | |LAESV(A-L): 67.83 ml | |LAESV Index (A-L): 33.25 ml/m2 | |LAAs A2C: 21.09 cm2 | |LAESV A-L A2C: 67.97 ml | |LALs A2C: 5.55 cm | |LAAs A4C: 19.31 cm2 | |LAESV A-L A4C: 62.09 ml | |LALs A4C: 5.09 cm | |Ao Diam: 3.71 cm | |LA Diam: 3.60 cm | |LA/Ao: 0.97 | |AV maxP.96 mmHg | |AV meanP.80 mmHg | |AV Vmax: 1.41 m/s | |AV Vmean: 0.89 m/s | |AV VTI: 25.39 cm | |RYLEE Vmax: 3.31 cm2 | |RYLEE (VTI): 3.29 cm2 | |LVOT maxP.02 mmHg | |LVOT meanP.15 mmHg | |LVSI Dopp: 40.97 ml/m2 | |LVSV Dopp: 83.58 ml | |LVOT Vmax: 1.12 m/s | |LVOT Vmean: 0.65 m/s | |LVOT VTI: 20.03 cm | |IVRT: 89.96 ms | |MV A Walt: 0.99 m/s | |MV Dec Taylor: 3.18 m/s2 | |MV DecT: 201.00 ms | |MV E Walt: 0.64 m/s | |MV E/A Ratio: 0.64 | |MV PHT: 58.29 ms | |MVA By PHT: 3.77 cm2 | |Septal e': 0.08 m/s | |Septal E/e': 7.73 | |Lateral e': 0.07 m/s | |Lateral E/e': 8.60 | |RAP: 5 mmHg | |RVSP: 25.67 mmHg | |TR maxP.67 mmHg | |TR Vmax: 2.27 m/s | | | |Log Chipper Operator: | |Authenticated by: Saul Hernandez | |Report Date/Time: 02-11-2015 18:59:58 | | | |IMPRESSION: | |1. Overall left ventricular systolic function is normal with, an EF between 65 - 70 %. | + + documented in this encounter Visit Diagnoses Not on filedocumented in this encounter"
--- OUTSIDE RECORDS SUMMARY | ~2019-08-15 | XMS | Encounter Summary ---
Demographics + + + | Address | [address] | | | [place] [address] | + + + | Home Phone | | + + + | Preferred Language | Unknown | + + + | Marital Status | | + + + | Mu-Ism Affiliation | Unknown | + + + | Race | Unknown | + + + | Ethnic Group | Unknown | + + + Author + + + | Author | [facility] | | | and [place] | + + + | Organization | [facility] | | | and [place] [...] Team Providers + +------+ + | Care Brick Paver Name | Role | Phone | + +------+ + | Nate Blackwell | PCP | | | MD | | | + +------+ + Encounter Details +--------+ + + + + | Date | Type | Department | Care Team | Description | +--------+ + + + + | 02/11/ | Orders Only | [facility] | Saul Hernandez | | | 2015 | | CARDIOLOGY JAIME Vaughan MD [address] | | | | | [address] | [address] | | | | | [address] | [place] [address] | | | | | [place], [place] | [phone] | | | | | [address] | | | | | | [phone] | | | +--------+ + + + [...] | | | | | | [place] | | | | | | [address] | | | | | | | | +--------+---------+ + + + documented as of this encounter Procedures + +--------+ + + + | Procedure Name | Priori | Date/Time | Associated Diagnosis | Comments | | | ty | | | | + +--------+ + + + | STRESS ECG | Routin | 02/11/2015 | | Results for this | | | e | 4:07 PM | | procedure are in the | | | | PDT | | results section. | + +--------+ + + + documented in this encounter Results Stress ECG (02/11/2015 4:07 PM PDT) + + | Specimen | + + | | + + + + + | Narrative | Performed At | + + + | [facility] CARDIOLOGY Treadmill Stress Test TEST DATE: | | | 02/11/2015 INDICATION FOR TEST: 71 year old male being evaluated | | | for right bundle branch block, cardiomyopathy RISK FACTORS: | | | hypertension, hyperlipidemia, diabetes mellitus PROCEDURE: Franklyn | | | protocol. The predicted exercise time was 7 minutes.Patient's | | | Predicted Maximum HR: 136 bpm. Patient's Predicted 85% Max HR: 116 bpm | | | REST DATA: HR: 68 bmp BP: 146 / 67 Rest EKG shows NSR RBBB. | | | STRESS DATA: Exercise Time: 03:41 minutes, HR achieved: 127 bpm , Max | | | BP: 211 / 59 . RPP: 85919. METS: 6.20. Symptoms: bilateral leg | | | fatigue The test was terminated due to patient bilateral leg fatigue, | | | walked to 93 % MPHR. Stress EKG shows no significant ST T changes, | | | no arrhythmias noted. IMPRESSIONS: Negative treadmill exercise | | | stress test. Hypertensive response to exercise noted. Saul | | | MD Mary Electronically signed by Saul Hernandez MD on | | | 02/13/2015 7:14 PM | | + + + + + | Procedure Note | + + | Vin Ortiz Conversion - 03/30/2019 9:53 AM [facility] CARDIOLOGYTreadmill | | Stress Test TEST DATE: 02/11/2015 INDICATION FOR TEST: 71 year old male being evaluated | | for right bundle branch block, cardiomyopathy RISK FACTORS: hypertension, | | hyperlipidemia, diabetes mellitus PROCEDURE: Franklyn protocol. The predicted exercise time | | was 7 minutes.Patient's Predicted Maximum HR: 136 bpm. Patient's Predicted 85% Max HR: | | 116 bpm REST DATA: HR: 68 bmp BP: 146 / 67 Rest EKG shows NSR RBBB. STRESS DATA: | | Exercise Time: 03:41 minutes, HR achieved: 127 bpm , Max BP: 211 / 59 . RPP: 85204. | | METS: 6.20. Symptoms: bilateral leg fatigue The test was terminated due to patient | | bilateral leg fatigue, walked to 93 % MPHR. Stress EKG shows no significant ST T | | changes, no arrhythmias noted. IMPRESSIONS:Negative treadmill exercise stress | | test.Hypertensive response to exercise noted. Saul Hernandez MD Electronically | | signed by Saul Hernandez MD on 02/13/2015 7:14 PM | |REST DATA: HR: 68 bmp BP: 146 / 67 Rest EKG shows NSR RBBB. | | | |STRESS DATA: Exercise Time: 03:41 minutes, HR achieved: 127 bpm , Max BP: 211 / 59 . RPP: 2 4563. METS: 6.20. Symptoms: bilateral leg fatigue The test was terminated due to patient jocy ateral leg fatigue, walked to 93 % MPHR. Stress EKG shows no | |significant ST T changes, no arrhythmias noted. | | | |IMPRESSIONS: | |Negative treadmill exercise stress test. | |Hypertensive response to exercise noted. | | | |Saul Hernandez MD | | | | | + + documented in this encounter Visit Diagnoses Not on filedocumented in this encounter"
--- OUTSIDE RECORDS SUMMARY | ~2019-08-15 | XMS | Clinical Summary ---
Demographics + + + | Address | [address] | | | [place] [address] | + + + | Home Phone | | + + + | Preferred Language | Unknown | + + + | Marital Status | | + + + | Episcopal Affiliation | Unknown | + + + | Race | Unknown | + + + | Ethnic Group | Unknown | + + + Author + + + | Author | [facility] (Historical as of | | | 03-24-19) | + + + | Organization | [facility] (Historical as of | | | 03-24-19) | + + + | Address | Unknown | + + + | Phone | Unavailable | + + + Support + + +---------+ + | Name | Relationship | Address | Phone | + + +---------+ + | Suzanna Hirsch | ECON | Unknown | | + + +---------+ + Care Team Providers + +------+ + | Care Disaster Response Director Name | Role | Phone | + [...] | | | | Activ | | [id number] | mouth daily. | | | | [...] | | | | Activ | | LO-[id number] | mouth daily. | | | | | e | | obalamin | | | | | | | | (UN-[id number] | | | | | | | [...] | mouth daily. | tablet | | 9/20 | | e | | hr tablet [...] now notedHe is | | asymptomaticHe stays [id number] echo normal LV functionReg EST | | [...] his PCP.Hx CABG: noHx | | PCI/stent: noPacemaker/ICD: noLast cath: naLast Echo, 10/01/2011: | | [...] + + + + Plan of Treatment + + + + + | Health [...] | | | | | (#1) | 9 | | | + + + + + Results Not on filefrom Last 3 Months Insurance + +--------+ +------+-------+ + | Payer | Rolandi | Subscriber | Type | Phone | Address | | | t Plan | ID | | | | | | / | | | | | | | Group | | | | | + +--------+ +------+-------+ + | MEDICARE | MEDICA | [id number] | | | [address] | | | RE | | | | [place] [address] | | | IP-OP | | | | | + +--------+ +------+-------+ + | [employer] | ODS | [id number] | | | | | | HEALTH [...] | [address] | | | [phone] | [phone] | + +--------+ +--------+ + +
--- OUTSIDE RECORDS SUMMARY | ~2019-08-15 | XMS | Encounter Summary ---
Demographics + + + | Address | [address] | | | [place] [address] | + + + | Home Phone | | + + + | Preferred Language | Unknown | + + + | Marital Status | | + + + | Zoroastrian Affiliation | Unknown | + + + | Race | Unknown | + + + | Ethnic Group | Unknown | + + + Author + + + | Author | [facility] | | | and [place] | + + + | Organization | [facility] | | | and [place] [...] Team Providers + +------+ + | Care Technical Asst Name | Role | Phone | + [...] | | | | [place] | [phone] | | | | | [address] | | | | | | [phone] | | | +--------+ + + + [...] | | | | | [place], [place] | | | | | | [address] | | | | | | | | +--------+---------+ + + + documented as of this encounter Visit Diagnoses Not on filedocumented in this encounter"
--- OUTSIDE RECORDS SUMMARY | ~2019-08-15 | XMS | Encounter Summary ---
Demographics + + + | Address | [address] | | | [place] [address] | + + + | Home Phone | | + + + | Preferred Language | Unknown | + + + | Marital Status | | + + + | Faith Affiliation | Unknown | + + + | Race | Unknown | + + + | Ethnic Group | Unknown | + + + Author + + + | Author | [facility] | | | and [place] | + + + | Organization | [facility] | | | and [...] Team Providers + +------+ + | Care Orthopedic Physical Therapist Name | Role | Phone | + [...] | | | | [place] | [phone] | | | | | [address] | | | | | | [phone] | | | +--------+ + + + [...] | | | | | [place], [place] | | | | | | [address] | | | | | | | | +--------+---------+ + + + documented as of this encounter Visit Diagnoses Not on filedocumented in this encounter"
--- OUTSIDE RECORDS SUMMARY | ~2019-08-15 | XMS | Encounter Summary ---
Demographics + + + | Address | [address] | | | [place] [address] | + + + | Home Phone | | + + + | Preferred Language | Unknown | + + + | Marital Status | | + + + | Quaker Affiliation | Unknown | + + + | Race | Unknown | + + + | Ethnic Group | Unknown | + + + Author + + + | Author | [facility] | | | and [place]ana | + + + | Organization | [facility] | | | and [place]ana [...] Team Providers + +------+ + | Care Retirement Actuary Name | Role | Phone | + +------+ + | Nate Blackwell | PCP | | | MD | | | + +------+ + Encounter Details +--------+ + + + + | Date | Type | Department | Care Team | Description | +--------+ + + + + | 01/14/ | Orders Only | [facility] | Yanira Schmidt, | | | 2017 | | CARDIOLOGY JAIME | [address] | | | | | [address] | [place] | | | | | [place] | [address] | | | | | [address] | | | | | | [phone] | | | +--------+ + + + [...] [place] | | | | | | [address] | | | | | | | | +--------+---------+ + + + documented as of this encounter Visit Diagnoses Not on filedocumented in this encounter"
--- OUTSIDE RECORDS SUMMARY | ~2019-08-15 | XMS | Encounter Summary ---
Demographics + + + | Address | [address] | | | [place] [address] | + + + | Home Phone | | + + + | Preferred Language | Unknown | + + + | Marital Status | | + + + | Adventism Affiliation | Unknown | + + + | Race | Unknown | + + + | Ethnic Group | Unknown | + + + Author + + + | Author | [facility] | | | and Garyana | + + + | Organization | [facility] | | | and Garyana | [...] Team Providers + +------+ + | Care Dental Assistant Medical Assistant Name | Role | Phone | + [...] + + | 06/11/ | Office | [facility] | Trina Verdugo | Right bundle branch | | 2019 | Visit | CARDIOLOGY [place] | [address] | block (Primary Dx); | | | | [address] | [address]ARCIA [address] | Essential | | | | [address] | [place] [address] | hypertension; Mixed | | | | [place], [place] | [phone] | hyperlipidemia; | | | | [address] | | Murmur, cardiac | | | | [phone] | | | +--------+---------+ + + + [...] you fasting labs to be done at [facility], and can be combined with any [...] today as overdue for [facility] exam He is a patient of , who is his primary cooling pipe inspector , and last seen by mihai mercer 04/19/2018. He was previously seen by cooling pipe inspector , now retired. . Today, I reviewed [...] He continues to do some work with [email or web address], predominantly [employer], initiall y retired from full-time work with [...] farm work , and tolerates. Lives in [place] . 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 . has significant health problems, and lives w ith adult daughter with medical disability. Outpatient Medications Prior to Visit Medication Sig Dispense Refill aspirin 81 MG EC tablet Take 81 mg by mouth daily. Calcium Citrate-Vitamin D (CALCIUM CITRATE + D3 PO) Take 1 tablet by mouth daily. NONBVLW-PHKUTTLIN-HVLX PO Take 1 tablet by mouth daily. Cholecalciferol (VITAMIN D-3) 2000 units CAPS Take 2,000 Units by mouth daily. folic tzaj-orwpghizaj-dqxphtymyruaaz (FOLBIC) 2.5-25-2 MG TABS Take 1 tablet [...] branch block LAFB. R ate 68 bpm, SC 216 ms, QRS 146 ms, QTC 452 ms tracing personally reviewed by me. EK06/11/2019: Sinus rhythm with first-degree AV block, right bundle branch block. Rate 6 1 bpm, SC 226 ms, QRS 144 ms, QTC 430 [...] contain inadvertent rec ognition errors. Rashad PALOMARES [facility] 06/11/2019 Tran montenegro in this encounter [...] [place] | | | | | | [address] | | | | | | | [...] | | | | | by [facility] [place] Read Only, | | | | | | [facility] Melanie (502), | | | | | | editor farm journal Dima Clements | | | | | [...]
--- OUTSIDE RECORDS SUMMARY | ~2019-08-15 | XMS | Encounter Summary ---
Demographics + + + | Address | [address] | | | [place] [address] | + + + | Home Phone | | + + + | Preferred Language | Unknown | + + + | Marital Status | | + + + | Adventist Affiliation | Unknown | + + + | Race | Unknown | + + + | Ethnic Group | Unknown | + + + Author + + + | Author | [facility] | | | and Garyana | + + + | Organization | [facility] | | | and Garyana [...] Team Providers + +------+ + | Care Key Punch Operator Name | Role | Phone | + +------+ + | Nate Blackwell | PCP | | | MD | | | + +------+ + Encounter Details +--------+ + + + + | Date | Type | Department | Care Team | Description | +--------+ + + + + | 02/11/ | Orders Only | [facility] | Saul Hernandez | | | 2015 | | CARDIOLOGY JAIME | [address] | | | | | [address] | [address] | | | | | [place] | [place] [address] | | | | | [address] | [phone] | | | | | [phone] | | | +--------+ + + + [...] SKINNER | | | | | | [address] | | | | | | | [...] | | Walt: 0.99 m/s MV Dec Lyon: 3.18 m/s2 MV DecT: 201.00 ms | [...] TR Vmax: 2.27 m/s | | | Fairing Worker: REE Authenticated by: Saul Hernandez Report | [...] cmLVIDd: 4.48 cmLVPWd: 1.11 cmLVOT Area: 4.17 [id number] Diam: 2.30 cm%FS: 43.82 | | %EF(Teich): [...] (A-L): 33.25 ml/m2LAAs A2C: | | 21.09 [id number] A-L A2C: 67.97 mlLALs A2C: 5.55 cmLAAs A4C: 19.31 [id number] A-L A4C: | | 62.09 mlLALs A4C: 5.09 cmAo Diam: 3.71 cmLA Diam: 3.60 cmLA/Ao: 0.97AV maxPG: | | 7.96 mmHgAV meanP.80 mmHgAV Vmax: 1.41 m/Magdalena Vmean: 0.89 m/Magdalena VTI: 25.39 | | cmAVA Vmax: 3.31 cm2AVA (VTI): 3.29 gl4DVHW maxP.02 mmHgLVOT meanP.15 | | mmHgLVSI Dopp: 40.97 ml/m2LVSV Dopp: 83.58 mlLVOT Vmax: 1.12 m/sLVOT Vmean: 0.65 | | m/sLVOT VTI: 20.03 cmIVRT: 89.96 msMV A Walt: 0.99 m/sMV Dec Lyon: 3.18 m/s2MV | | DecT: 201.00 msMV E Walt: 0.64 m/sMV E/A Ratio: 0.64MV PHT: 58.29 msMVA By PHT: | | 3.77 ax9Oqevrz e': 0.08 m/sSeptal E/e': 7.73Lateral e': 0.07 m/sLateral E/e': | | 8.60RAP: 5 mmHgRVSP: 25.67 mmHgTR maxP.67 mmHgTR Vmax: 2.27 m/s | | Fairing Worker: DHAuthenticated by: Saul Ayoub Date/Time: 02-11-2015 18:59:58 [...] A Walt: 0.99 m/s | |MV Dec Lyon: 3.18 m/s2 | |MV DecT: 201.00 ms [...] |TR Vmax: 2.27 m/s | | | |Fairing Worker: | |Authenticated by: Saul Hernandez | |Report Date/Time: 02-11-2015 18:59:58 | | | |IMPRESSION: | |1. Overall left ventricular systolic function is normal with, an EF between 65 - 70 %. | + + documented in this encounter Visit Diagnoses Not on filedocumented in this encounter"
--- OUTSIDE RECORDS SUMMARY | ~2019-08-15 | XMS | Clinical Summary ---
Demographics + + + | Address | [address] | | | [place] [address] | + + + | Home Phone | | + + + | Preferred Language | Unknown | + + + | Marital Status | | + + + | Denominational Affiliation | Unknown | + + + | Race | Unknown | + + + | Ethnic Group | Unknown | + + + Author + + + | Author | [facility] | | | and Garyana | + + + | Organization | [facility] | | [...] Team Providers + +------+ + | Care Timber Feller Name | Role | Phone | + [...] | 04/08 | | Activ | | sgqw-olhjolwobu-coth | mouth daily. | | | 12/25 [...] | | | | | [address] [place], [place] | | | | | | [address] | | | | | | | [...] | | | | | by [facility] [place] Read Only, | | | | | | [facility] Melanie (397), | | | | | | industrial editor Dima Clements | | | | [...] + +--------+ | MEDICARE | MEDICA | [id number] | 11/06/18 | [phone] | | Medica | | | RE | | 96-Pre | 5 | | re | | | PART A | | sent | | | | | | AND B | | | | | | + +--------+ +--------+ + +--------+ | MEDICARE | MEDICA | [id number] | 11/06/18 | [phone] | | Medica | | | RE | | 96-Pre | 5 | | re | | | PART A | | sent | | | | | | AND B | | | | | | + +--------+ +--------+ + +--------+ | MODA | MODA | [id number] | 10/07/19 | [id number] | [address] | Indemn | | | HEALTH | | 08-Pre | 9 | [phone] | ity | | | MDCR | | sent | | [place], | | | | [place] | | | | [place] [address] | | + +--------+ +--------+ + +--------+ | MODA | MODA | [id number] | 08/08/19 | [phone] | [address] | Indemn | | | HEALTH | | 19-Pre | 9 | [phone] | ity | | | MDCR | | sent | | [place], | | | | [place] | | | | [place] [address] | | + +--------+ +--------+ + +--------+ [...] | 1930 | [address] | [place] [address] | | | von | | | 4 (Home) | | + +--------+ +--------+ + + | Tiana Hirsch | Person | Self | [birth year] | | [address] | | | al/Fam | | 1931 | [phone] | [place] [address] | | | von | | | 4 (Home) | | + +--------+ +--------+ + + Advance Directives + + + + + | Type | Date Recorded | Patient | Explanation | | | | Family Services Coordinator | | + + + + + | Power of | | | | | Gem Cutter | | | | + + + + + | Advance | | | | | Directive | | | | + + + + +
--- OUTSIDE RECORDS SUMMARY | ~2019-08-15 | XMS | Encounter Summary ---
Demographics + + + | Address | [address] | | | [place] [address] | + + + | Home Phone | | + + + | Preferred Language | Unknown | + + + | Marital Status | | + + + | Alevism Affiliation | Unknown | + + + | Race | Unknown | + + + | Ethnic Group | Unknown | + + + Author + + + | Author | [facility] | | | and Garyana | + + + | Organization | [facility] | | | and [...] Providers + +------+ + | Care Sales And Marketing Professional Name | Role | Phone | + +------+ + | Nate Blackwell | PCP | | | MD | | | + +------+ + Encounter Details +--------+ + + + + | Date | Type | Department | Care Team | Description | +--------+ + + + + | 02/11/ | Orders Only | [facility] | Saul Hernandez | | | 2015 | | CARDIOLOGY JAIME Vaughan MD [address] | | | | | [address] | [address] | | | | | [address] | [place] [address] | | | | | [place], [place] | [phone] | | | | | [address] | | | | | | [phone] | | | +--------+ + + + [...] [place] | | | | | | [address] | | | | | | | [...] Performed At | + + + | [facility] Treadmill Stress Test TEST DATE: [...] | BP: 211 / 59 . RPP: 81335. METS: 6.20. Symptoms: bilateral leg | | [...] Vin Ortiz Conversion - 03/30/2019 9:53 AM [facility] CARDIOLOGYTreadmill | | Stress Test TEST DATE: [...] Max BP: 211 / 59 . RPP: 35152. | | METS: 6.20. Symptoms: bilateral leg [...]
--- OUTSIDE RECORDS SUMMARY | ~2019-08-15 | XMS | Clinical Summary ---
Demographics + + + | Address | [address] | | | [place] [address] | + + + | Home Phone | | + + + | Preferred Language | Unknown | + + + | Marital Status | | + + + | Druze Affiliation | Unknown | + + + | Race | Unknown | + + + | Ethnic Group | Unknown | + + + Author + + + | Author | [facility] (Historical as of | | | 03-24-19) | + + + | Organization | [facility] (Historical as of | | | 03-24-19) [...] Team Providers + +------+ + | Care Clearing Hand Name | Role | Phone | + [...] | | | | Activ | | RQMPYMB-TLLCKUCHZ-OK | mouth daily. | | | | [...] | | | | Activ | | HA-Zqdshqmrdf-Lznlqj | mouth daily. | | | | | e | | obalamin | | | | | | | | (OY-ZLWTOPPNLU-BTGRO | | | | | | | [...] now notedHe is | | asymptomaticHe stays oephii2M echo normal LV functionReg EST | | [...] +------+-------+ + | MEDICARE | MEDICA | [id number] | | | [address] | | | RE | | | | [place] [address] | | | IP-OP | | | | | + +--------+ +------+-------+ + | ODS HEALTH PLAN | ODS | [id number] | | | | | | HEALTH [...] | von | | | [phone] | [phone] | + +--------+ +--------+ + +
--- OUTSIDE RECORDS SUMMARY | ~2019-08-15 | XMS | Encounter Summary ---
Demographics + + + | Address | [address] | | | [place] [address] | + + + | Home Phone | | + + + | Preferred Language | Unknown | + + + | Marital Status | | + + + | Methodist Affiliation | Unknown | + + + | Race | Unknown | + + + | Ethnic Group | Unknown | + + + Author + + + | Author | [facility] | | | and Garyana | + + + | Organization | [facility] | | | and Garyana [...] Team Providers + +------+ + | Care Dry Kiln Feeder Name | Role | Phone | + [...] | | | | [place] | [phone] | | | | | [address] | | | | | | [phone] | | | +--------+ + + + [...] | | | | | [place], [place] | | | | | | [address] | | | | | | | | +--------+---------+ + + + documented as of this encounter Visit Diagnoses Not on filedocumented in this encounter"
--- OUTSIDE RECORDS SUMMARY | ~2019-08-15 | XMS | Encounter Summary ---
Demographics + + + | Address | [address] | | | [place] [address] | + + + | Home Phone | | + + + | Preferred Language | Unknown | + + + | Marital Status | | + + + | Congregation Affiliation | Unknown | + + + | Race | Unknown | + + + | Ethnic Group | Unknown | + + + Author + + + | Author | [facility] | | | and Garyana | + + + | Organization | [facility] | | | and Garyana [...] Team Providers + +------+ + | Care Camp Dishwasher Name | Role | Phone | + [...] | | | | [place] | [phone] | | | | | [address] | | | | | | [phone] | | | +--------+ + + + [...] | | | | | [place] | | | | | | [address] | | | | | | | | +--------+---------+ + + + documented as of this encounter Visit Diagnoses Not on filedocumented in this encounter"
--- OUTSIDE RECORDS SUMMARY | ~2019-08-15 | XMS | Encounter Summary ---
Demographics + + + | Address | [address] | | | [place] [address] | + + + | Home Phone | | + + + | Preferred Language | Unknown | + + + | Marital Status | | + + + | Hindu Affiliation | Unknown | + + + | Race | Unknown | + + + | Ethnic Group | Unknown | + + + Author + + + | Author | [facility] | | | and Garyana | + + + | Organization | [facility] | | | and Garyana [...] Team Providers + +------+ + | Care Mounting Inspector Name | Role | Phone | + [...] | | | | [place] | [phone] | | | | | [address] | | | | | | [phone] | | | +--------+ + + + [...] | | | | | [place] | | | | | | [address] | | | | | | | | +--------+---------+ + + + documented as of this encounter Visit Diagnoses Not on filedocumented in this encounter"
--- OUTSIDE RECORDS SUMMARY | ~2019-08-15 | XMS | Encounter Summary ---
Demographics + + + | Address | [address] | | | [place] [address] | + + + | Home Phone | | + + + | Preferred Language | Unknown | + + + | Marital Status | | + + + | Restoration Affiliation | Unknown | + + + | Race | Unknown | + + + | Ethnic Group | Unknown | + + + Author + + + | Author | [facility] | | | and Garyana | + + + | Organization | [facility] | | | and Garyana [...] Team Providers + +------+ + | Care Green Plumber Name | Role | Phone | + [...] + + | 06/11/ | Office | [facility] | Trina Verdugo | Right bundle branch | | 2019 | Visit | CARDIOLOGY [place] | [address] | block (Primary Dx); | | | | [address] | [address] | Essential | | | | [address] | [place] [address] | hypertension; Mixed | | | | [place], [place] | [phone] | hyperlipidemia; | | | | [address] | | Murmur, cardiac | | | | [phone] | | | +--------+---------+ + + + [...] you fasting labs to be done at [facility], and can be combined with any labs [...] for [facility] He is a patient of , who is his primary carpenter mold , and last seen by mihai mercer 04/19/2018. He was previously seen by carpenter mold , now retired. . Today, I reviewed [...] He continues to do some work with [employer], predominantly [employer], initiall y retired from full-time work with [...] farm work , and tolerates. Lives in [place] . 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 . has significant health problems, and lives w ith adult daughter with medical disability. Outpatient Medications Prior to Visit Medication Sig Dispense Refill aspirin 81 MG EC tablet Take 81 mg by mouth daily. Calcium Citrate-Vitamin D (CALCIUM CITRATE + D3 PO) Take 1 tablet by mouth daily. GCEXKNT-GQUVTKORG-QBQI PO Take 1 tablet by mouth daily. Cholecalciferol (VITAMIN D-3) 2000 units CAPS Take 2,000 Units by mouth daily. folic xpzi-ovkbsxutcl-mcppmvniktikja (FOLBIC) 2.5-25-2 MG TABS Take 1 tablet [...] branch block LAFB. R ate 68 bpm, PA 216 ms, QRS 146 ms, QTC 452 ms tracing personally reviewed by me. EK06/11/2019: Sinus rhythm with first-degree AV block, right bundle branch block. Rate 6 1 bpm, PA 226 ms, QRS 144 ms, QTC 430 [...] contain inadvertent rec ognition errors. Rashad PALOMARES [facility] 06/11/2019 Tran montenegro in this encounter [...] [place] | | | | | | [address] | | | | | | | [...] | | | | | by [facility] [place] Read Only, | | | | | | [facility] Melanie (502), | | | | | | video effects editor Dima Clements | | | | [...]
--- OUTSIDE RECORDS SUMMARY | ~2019-08-15 | XMS | Clinical Summary ---
Demographics + + + | Address | [address] | | | [place] [address] | + + + | Home Phone | | + + + | Preferred Language | Unknown | + + + | Marital Status | | + + + | Uatsdin Affiliation | Unknown | + + + | Race | Unknown | + + + | Ethnic Group | Unknown | + + + Author + + + | Author | [facility] | | | and Garyana | + + + | Organization | [facility] | | | and [...] Team Providers + +------+ + | Care Bean Dumper Name | Role | Phone | + [...] | 04/08 | | Activ | | dzia-okeolglzuz-dgzc | mouth daily. | | | 12/25 [...] | | | | | [place], [place] | | | | | | [address] | | | | | | | [...] | | | | | by [facility] [place] Read Only, | | | | | | [facility] Melanie (722), | | | | | | society editor Dima Clements | | | | [...] + +--------+ | MEDICARE | MEDICA | [id number] | 11/06/18 | [phone] | | Medica | | | RE | | 96-Pre | 5 | | re | | | PART A | | sent | | | | | | AND B | | | | | | + +--------+ +--------+ + +--------+ | MEDICARE | MEDICA | [id number] | 11/06/18 | [phone] | | Medica | | | RE | | 96-Pre | 5 | | re | | | PART A | | sent | | | | | | AND B | | | | | | + +--------+ +--------+ + +--------+ | MODA | MODA | [id number] | 10/07/19 | [phone] | [address] | Indemn | | | HEALTH | | 08-Pre | 9 | [phone] | ity | | | MDCR | | sent | | [place], | | | | [place] | | | | [place] [address] | | + +--------+ +--------+ + +--------+ | MODA | MODA | [id number] | 08/08/19 | [phone] | [address] | Indemn | | | HEALTH | | 19-Pre | 9 | [phone] | ity | | | MDCR | | sent | | [place], | | | | [place] | | | | [place] [address] | | + +--------+ +--------+ + +--------+ [...] | 1930 | [address] | [place] [address] | | | von | | | 4 (Home) | | + +--------+ +--------+ + + | Tiana Hirsch | Person | Self | [birth year] | | [address] | | | al/Fam | | 1931 | [phone] | [place] [address] | | | von | | | 4 (Home) | | + +--------+ +--------+ + + Advance Directives + + + + + | Type | Date Recorded | Patient | Explanation | | | | Bladder Blower | | + + + + + | Power of | | | | | Catheterization Laboratory Technician | | | | + + + + + | Advance | | | | | Directive | | | | + + + + +
--- OUTSIDE RECORDS SUMMARY | ~2019-08-15 | XMS | Encounter Summary ---
Demographics + + + | Address | [address] | | | [place] [address] | + + + | Home Phone | | + + + | Preferred Language | Unknown | + + + | Marital Status | | + + + | Orthodoxy Affiliation | Unknown | + + + | Race | Unknown | + + + | Ethnic Group | Unknown | + + + Author + + + | Author | [facility] | | | and Garyana | + + + | Organization | [facility] | | [...] Providers + +------+ + | Care Sales Operations Consultant Name | Role | Phone | + [...] | | | | [place] | [phone] | | | | | [address] | | | | | | [phone] | | | +--------+ + + + [...] | | | | | [place], [place] | | | | | | [address] | | | | | | | | +--------+---------+ + + + documented as of this encounter Visit Diagnoses Not on filedocumented in this encounter"
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
== END 2019-08-15 15:02 | disposition home or self-care (01) ==
LOC: ED 13:58
DX: S00.31XA Abrasion of nose, initial encounter (principal); W18.30XA Fall on same level, unspecified, initial encounter; I10 Essential (primary) hypertension; Z88.0 Allergy status to penicillin; Z79.899 Other long term (current) drug therapy; Z79.82 Long term (current) use of aspirin
CPT/HCPCS: 99283

== ENCOUNTER 2020-07-26 12:47 | Emergency (ER) | payer MEDICARE, OTHER ==
[~2020-07-26] VITALS: Ht 180.3 cm; Wt 80.7 kg
[~2020-07-26 12:47] MED LIST changes: -PRAVACHOL80 MG PO; +PRAVASTATIN SOD80 MG PO
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
[2020-07-26] MEDS ORDERED: OMEPRAZOLE20 MG PO (13:27)
== END 2020-07-26 13:31 | disposition home or self-care (01) ==
LOC: ED 12:47
DX: Z00.8 Encounter for other general examination (principal)